=== PATIENT | male | born 1960 | race Caucasian/White ===

== ENCOUNTER 2024-11-17 06:12 | Day surgery (SDC) | payer OTHER, SELFPAY ==
[2024-11-17] VITALS (8 sets, daily range): BP systolic 90–132; BP diastolic 66–92; PULSE 57–76; RESP 16–18; TEMP 36.1–36.8; O2SAT 92–93; BMI 34.9
[2024-11-17] MEDS: Lactated Ringers 1,000 ML 15 ML IV (06:30)
--- NOTE | 2024-11-17 07:20 | PCM.PRE.AN2 ---
ASA Classification* ASA Classification ASA Classification: 2 Assessment & Plan Anesthesia* Anesthesia Assessment Anesthesia Assessment: Discussed sedation and/or anesthesia options, risks, benefits, and alternatives with patient/parents/legal guardian/POA. Questions invited. The patient/parents/legal guardian/POA seems to understand and agrees to proceed with anesthesia plan. Reviewed the physical assessment, medical history, allergy history and patient home medications list prior to surgery/procedure/anesthetic and documented any changes. Performed airway and anesthesia risk assessments. Anesthesia Type Anesthesia Type: MAC Anesthesia Focused Assessment* Temperature: 97.2 F Pulse Rate: 76 Blood Pressure: 124/84 Respiratory Rate: 16 Pulse Ox: 93 Airway Assessment Mouth opens: >3 cm Mallampati Score: II Focused Labs Anesthesia Preop lab: CBC CHEMISTRY COAG Pre-Assessment Diagnosis/Proposed Procedure Planned Operative Procedure(s): COLONOSCOPY Anesthesia History Anesthesia History - cloth trimmer hand: Anesthesia History - cloth trimmer hand Hx Hospitalization No 11/15/24 09:22 Any Problems With Anesthesia No 11/15/24 09:22 Cholinesterase deficiency No 11/15/24 09:22 You/Your Family Experience No 11/15/24 09:22 fever (hyperthermia) with Relationship Recent Exposure to Contagious No 11/17/24 06:54 Disease Does patient have nerve No 11/15/24 09:22 stimulator Patient instructed to have device shut off --Does patient have Pacemaker No 11/17/24 06:54 or ICD? When Was Last Pacemaker Check QUESTION #4 FULL TEXT: You/Your Family Experience fever (hyperthermia) with Anesthesia Last Oral Intake Last Oral intake: Last Oral Intake NPO since 03:20 11/17/24 06:54 Meds taken in AM with sips of No 11/17/24 06:54 water? Meds patient instructed to take am of surgery PONV PONV - cloth trimmer hand: PONV - cloth trimmer hand Female No 11/15/24 09:22 HX of Motion Sickness No 11/15/24 09:22 HX of N/V After Surgery Yes 11/15/24 09:22 Non-Smoker Yes 11/15/24 09:22 Duration of Surgery greater No 11/15/24 09:22 than 60 minutes Number of Risk Factors 2 11/15/24 09:22 PONV Score Moderate Risk 11/15/24 09:22 Height & Weight Height & Weight: Anesthesia: Height & Weight Height 5 ft 11 in 11/17/24 06:54 Weight: 113.6 kg 11/17/24 06:54 Body Mass Index (BMI) 34.9 11/17/24 06:54 Respiratory Assessment Respiratory Assessment - cloth trimmer hand: Respiratory Tract Infection Hx - cloth trimmer hand Hx Respiratory Tract Infection No 11/15/24 09:22 STOP Sleep Apnea STOP Sleep Apnea - cloth trimmer hand: STOP Sleep Apnea - cloth trimmer hand Hx Hypertension Yes 11/15/24 09:22 Hx Sleep Apnea No 11/15/24 09:22 CPAP BIPAP Do you snore loudly (louder No 11/15/24 09:22 than talking or can be heard Do you often feel tired/ No 11/15/24 09:22 fatigued/ sleepy during daytime? Has anyone observed you stop No 11/15/24 09:22 breathing during sleep? STOP Results Negative 11/15/24 09:22 QUESTION #5 FULL TEXT : Do you snore loudly (louder than talking or can be heard through closed doors)? Tobacco Use History Tobacco Use History - cloth trimmer hand: Tobacco Use History - cloth trimmer hand Tobacco Use Smoking Status Former smoker 11/15/24 09:22 Hx Tobacco Use No 11/15/24 09:22 Years Smoking Packs Smoked per Day Smoking Cessation Date was Yes - quit smoking within 15 11/15/24 09:22 within the last 15 years years Hx Smoking Cessation Date Hx Smoking Cessation Counseling Hematologic Medial History Hematologic Hx - cloth trimmer hand: Hematologic Medical Hx - driver messenger Hx of Blood Transfusion No 11/15/24 09:22 Hx of Transfusion in last 3 No 11/15/24 09:22 Months Date of Last Transfusion (if within last 3 months) Ever experience any problems No 11/15/24 09:22 with transfusion(s)? Specify any problems Hx of Preganancy in last 3 N/A 11/15/24 09:22 Months Nurse Filling Out Transfusion [facility] 11/15/24 09:22 & Questions: Date: 11/15/24 11/15/24 09:22 Time: :11/15/24 09:22 Patient unable to answer at this time (ie. confused, unrespo /Reproduction History /Reproductive History - cloth trimmer hand: /Reproductive Hx- cloth trimmer hand Hx Now Gestational Age (in weeks): EDC: Hx Hx Para Hx Section SAB Active Medications Active Medications: Current Medications Generic Name Dose Route Start Last Admin Trade Name Kerri PRN Reason Stop Dose Admin Lactated Ringer's 1,000 mls @ 15 mls/hr 11/17/24 06:30 11/17/24 06:30 IV 15 mls/hr .Q48H UMAIR Administration PFSH Medical History Cancer Marijuana use Arthritis High cholesterol Migraine headache Back pain History of diverticulitis Former smoker Hypercholesteremia HTN (hypertension) Hx of colonic polyps Home Medications ?Medication ?Instructions ?Recorded ?Last Taken ?Type aspirin 81 mg tablet,delayed 81 mg PO QDAY 09/10/24 11/13/24 History release (Adult Low Dose Aspirin) metoprolol succinate 100 mg 100 mg PO QDAY 09/10/24 11/16/24 History tablet,extended release 24 hr omega 1-hje-vpc-fish oil 1,200 mg 1 cap PO QDAY 09/10/24 11/12/24 History (144 mg-216 mg) capsule (Fish Oil) rosuvastatin 40 mg tablet 40 mg PO QDAY 09/10/24 11/16/24 History Allergy/AdvReac Type Severity Reaction Status Date / Time No Known Allergies Allergy Verified 11/17/24 06:53 Family History Mother Alzheimer disease Father COPD (chronic obstructive pulmonary disease) CAD (coronary artery disease) Surgical History History of orchiectomy History of hernia repair Hx of colonoscopy Social History household members: spouse current occupational status: employed Smoking Status: Former smoker alcohol intake: current alcohol intake frequency: holidays/special occasions only substance use type: does not use Review of Systems (Anesthesia) ROS Narrative System reviewed and no additional complaints, except as documented.
--- NOTE | 2024-11-17 07:30 | COLBX_PTH ---
PATIENT: JOANNE ALANIZ LOC: EN U#:[id number] AGE/SX: 64/M ROOM: RE11/17/[address]: Dr. Conor Scott DO : 1960 BED: DIS: 11/17/2024 SPEC #: [id number] RECD: 11/17/24 12:12 STATUS: IVET HARVINDER #: [id number] TITO: 11/17/24 07:[address]: Conor Scott DEPT: SURGICAL PATHOLOGY RECD BY: Mark Caballero ENTERED: 11/17/24 14:04 SP TYPE: COLON BX CELINE DR: Dr. Ollie Britt DO Tissues: A - COLON BIOPSY B - COLON BIOPSY C - Sigmoid colon biopsy D - Sigmoid colon biopsy Procedures: Surgery Specimen Level IV HEADER OPERATION: Colonoscopy, polypectomy PRE-OP DIAGNOSIS: Screening, polyp TISSUE SUBMITTED: Hepatic flexure polyps x3, Splenic flexure polyp, Sigmoid polyp #1, Sigmoid polyp #2 MICROSCOPIC DIAGNOSIS A. Colon, hepatic flexure, polyp, biopsy: * Tubular adenoma B. Colon, splenic flexure, polyp, biopsy: * Colonic mucosa with focally dilated crypts C. Sigmoid colon, polyp #1, biopsy: * Tubular adenoma D. Sigmoid colon, polyp #2, biopsy: * Hyperplastic polyp MICROSCOPIC DESCRIPTION Slides are reviewed. GROSS DESCRIPTION A. Received in formalin in a container labeled with the patient's name, date of , and hepatic flexure polyps are multiple shaw-pink fragments of mucosal tissue measuring 1.5 x 0.7 x 0.3 cm in aggregate. Submitted in toto in A1. B. Received in formalin in a container labeled with the patient's name, date of , and splenic flexure polyp is a 0.3 x 0.3 x 0.3 cm fragment of shaw-pink mucosal tissue. Submitted in toto in B1. C. Received in formalin in a container labeled with the patient's name, date of , and sigmoid polyp #1 is a 0.7 x 0.5 x 0.5 cm shaw-pink polyp with an attached 0.5 x 0.5 cm stalk (inked black). It is trisected and submitted entirely in C1. D. Received in formalin in a container labeled with the patient's name, date of , and sigmoid polyp #2 is a 0.8 x 0.5 x 0.3 cm polypoid fragment of shaw-pink mucosal tissue. The margin is inked black, and it is trisected. Received in the same container are 2 shaw-pink fragments of mucosal tissue each measuring 0.3 cm in greatest dimension. Submitted entirely in D1. [facility] 11-17-2024 CPT:08624z0
--- NOTE | 2024-11-17 07:50 | PCM.HP.STD ---
HPI - General General Date of Admission: 11/17/24 Date of Service: 11/17/24 Chief Complaint: Screening colon HPI Narrative JOANNE ALANIZ, is a 64 M who presents today for a screening colonoscopy. He had a colonoscopy in 2011 in which he had 3 polyps removed during that time. He is not have any abdominal pain. He is not have any chest pain or shortness of breath. He has a past medical history of hypertension and hypercholesterolemia. [facility] Medical History Cancer Marijuana use Arthritis High cholesterol Migraine headache Back pain History of diverticulitis Former smoker Hypercholesteremia HTN (hypertension) Hx of colonic polyps Home Medications ?Medication ?Instructions ?Recorded ?Last Taken ?Type aspirin 81 mg tablet,delayed 81 mg PO QDAY 09/10/24 11/13/24 History release (Adult Low Dose Aspirin) metoprolol succinate 100 mg 100 mg PO QDAY 09/10/24 11/16/24 History tablet,extended release 24 hr omega 5-olj-ywv-fish oil 1,200 mg 1 cap PO QDAY 09/10/24 11/12/24 History (144 mg-216 mg) capsule (Fish Oil) rosuvastatin 40 mg tablet 40 mg PO QDAY 09/10/24 11/16/24 History Allergy/AdvReac Type Severity Reaction Status Date / Time No Known Allergies Allergy Verified 11/17/24 06:53 Family History Mother Alzheimer disease Father COPD (chronic obstructive pulmonary disease) CAD (coronary artery disease) Surgical History History of orchiectomy History of hernia repair Hx of colonoscopy Social History household members: spouse current occupational status: employed Smoking Status: Former smoker alcohol intake: current alcohol intake frequency: holidays/special occasions only substance use type: does not use ROS Constitutional Constitutional: Denies fatigue, fever(s), poor appetite, weight gain or weight loss Gastrointestinal Gastrointestinal: Denies belching, bloating, change in bowel habits, change in stool character, chewing difficulty, coffee ground emesis, constipation, cramping, diarrhea, dyspepsia, dysphagia, early satiety, excessive flatus, fecal incontinence, heartburn, hematemesis, hematochezia, hemorrhoids, loose stools, melena, nausea, odynophagia, rectal bleeding, tenesmus, vomiting or weight changes Vital Signs Vital Signs Vital Signs: 11/17/24 06:54 11/17/24 06:54 11/17/24 07:21 Temperature 97.2 F L 97.2 F L Temperature Source Temporal Pulse Rate 76 76 Respiratory Rate 16 16 Respiratory Pattern Normal Blood Pressure 124/84 H 124/84 H Blood Pressure Mean 97 Blood Pressure Source Monitor Blood Pressure Position Semi-Fowlers Blood Pressure Location Right Arm Pulse Ox 93 93 Oxygen Delivery Method Room Air Weight Weight: 250 lb 7.122 oz Body Mass Index (BMI) 34.9 Physical Exam Const alert, oriented x3, no apparent distress and healthy appearing General Appearance: cooperative GI normal to inspection, nondistended, normoactive bowel sounds, soft to palpation, non-tender and non-distended Percussion: normal to percussion Rectal Exam: deferred Assessment & Plan Assessment/Plan (1) Encounter for screening for malignant neoplasm of colon: PLAN: He was explained alternatives, risks, benefits include not withstanding bleeding, infection, sepsis, perforation, need for emergent surgery and . He will have an ASA of 3.
--- NOTE | 2024-11-17 08:40 | PCM.POST.ANE ---
Anesthesia: Postop Eval I Current Vital Signs Temperature: 97 F Pulse Rate: 64 Blood Pressure: 94/67 Respiratory Rate: 18 Pulse Ox: 93 Oxygen Delivery Method: Room Air Assessment Airway patent: Yes Spontaneous unlabored respirations: Yes Mental status: Asleep nausea: No Vomiting: No Anesthesia Complication: No Fluid Hydration Crystalloid volume administer (ml): 500 Total IV fluid infused: 500 Progress Note Anesthesia document: Postop Eval 1 completed: Yes
--- NOTE | 2024-11-17 08:41 | OP.COLON_ITS ---
Patient Name: Paco Giles Procedure Date: 11/17/2024 7:54 AM Date of : 1960 Age: 64 Procedure: Colonoscopy Indications: High risk colon cancer surveillance: Personal history of colonic polyps Providers: Conor Scott DO Referring MD: Ollie Britt Medicines: Monitored Anesthesia Care Patient Profile: This is a 64 year old male. Refer to note in patient chart for documentation of history and physical. Last Colonoscopy: more than 10 years ago. Complications: No immediate complications. Procedure: Pre-Anesthesia Assessment: - Prior to the procedure, a History and Physical was performed, and patient medications and allergies were reviewed. The patient is competent. The risks and benefits of the procedure and the sedation options and risks were discussed with the patient. All questions were answered and informed consent was obtained. Patient identification and proposed procedure were verified by the physician in the pre-procedure area. Mental Status Examination: alert and oriented. Airway Examination: normal oropharyngeal airway and neck mobility. Respiratory Examination: clear to auscultation. CV Examination: normal. Prophylactic Antibiotics: The patient does not require prophylactic antibiotics. Prior Anticoagulants: The patient has taken no anticoagulant or antiplatelet agents except for NSAID medication. ASA Grade Assessment: II - A patient with mild systemic disease. After reviewing the risks and benefits, the patient was deemed in satisfactory condition to undergo the procedure. The anesthesia plan was to use monitored anesthesia care (MAC). Immediately prior to administration of medications, the patient was re-assessed for adequacy to receive sedatives. The heart rate, respiratory rate, oxygen saturations, blood pressure, adequacy of pulmonary ventilation, and response to care were monitored throughout the procedure. The physical status of the patient was re-assessed after the procedure. After I obtained informed consent, the scope was passed under direct vision. Throughout the procedure, the patient's blood pressure, pulse, and oxygen saturations were monitored continuously. The colonoscope was introduced through the anus and advanced to the cecum, identified by appendiceal orifice and ileocecal valve. The colonoscopy was performed without difficulty. The patient tolerated the procedure well. The quality of the bowel preparation was adequate. The ileocecal valve, appendiceal orifice, and rectum were photographed. Scope In: 8:03:55 AM Scope Withdrawal Time 0 hours 20 minutes 1 second Scope Out: 8:31:01 AM Total Procedure Duration Time 0 hours 27 minutes 6 seconds Findings: The perianal and digital rectal examinations were normal. Two sessile polyps were found in the sigmoid colon. The polyps were 1 to 2 mm in size. These polyps were removed with a hot snare. Resection and retrieval were complete. Verification of patient identification for the specimen was done. Estimated blood loss was minimal. Three sessile polyps were found in the hepatic flexure. The polyps were 1 to 2 mm in size. These polyps were removed with a cold snare. Resection and retrieval were complete. Verification of patient identification for the specimen was done. Estimated blood loss was minimal. A 5 mm polyp was found in the splenic flexure. The polyp was sessile. The polyp was removed with a jumbo cold forceps. Resection and retrieval were complete. Verification of patient identification for the specimen was done. Estimated blood loss was minimal. Multiple small and large-mouthed diverticula were found in the entire colon. The exam was otherwise without abnormality on direct and retroflexion views. Impression: - Two 1 to 2 mm polyps in the sigmoid colon, removed with a hot snare. Resected and retrieved. - Three 1 to 2 mm polyps at the hepatic flexure, removed with a cold snare. Resected and retrieved. - One 5 mm polyp at the splenic flexure, removed with a jumbo cold forceps. Resected and retrieved. - Diverticulosis in the entire examined colon. - The examination was otherwise normal on direct and retroflexion views. Recommendation: - Discharge patient to home. - Resume previous diet. - Continue present medications. - Await pathology results. - Repeat colonoscopy in 3 years for surveillance. Procedure Code(s): --- Professional --- 34212, Colonoscopy, flexible; with removal of tumor(s), polyp(s), or other lesion(s) by snare technique 39576, 59, Colonoscopy, flexible; with biopsy, single or multiple CPT copyright 2021 [employer]. All rights reserved. The codes documented in this report are preliminary and upon pre coder review may be revised to meet current compliance requirements. Conor Scott DO 11/17/2024 8:40:51 AM This report has been signed electronically. Number of Addenda: 0 Note Initiated On: 11/17/2024 7:54 AM
--- NOTE | 2024-11-17 08:41 | OP.CCLET_ITS ---
11/17/2024 Olile Britt Re : Colonoscopy procedure for Paco Giles Dear Lorenza This procedure was performed on Sunday, November 17, 2024. My impressions and recommendations are as follows: Impressions : - Two 1 to 2 mm polyps in the sigmoid colon, removed with a hot snare. Resected and retrieved. - Three 1 to 2 mm polyps at the hepatic flexure, removed with a cold snare. Resected and retrieved. - One 5 mm polyp at the splenic flexure, removed with a jumbo cold forceps. Resected and retrieved. - Diverticulosis in the entire examined colon. - The examination was otherwise normal on direct and retroflexion views. Recommendations : - Discharge patient to home. - Resume previous diet. - Continue present medications. - Await pathology results. - Repeat colonoscopy in 3 years for surveillance. My findings are described in the full procedure note, which is enclosed. If I can be of further assistance, please feel free to contact me at . Sincerely, Conor Scott DO 11/17/2024 8:40:51 AM This report has been signed electronically.
--- NOTE | 2024-11-17 08:43 | PCM.POSTANE2 ---
Anesthesia Postop Eval I Sum Postop Eval Completion status Anesthesia document: Postop Eval 1 completed: Yes Anesthesia Postop Eval I Summary Anesthesia Postop Eval I Summary: Anesthesia Postop Eval I: Assessment Summary Airway patent Yes 11/17/24 08:41 [email or web address] Spontaneous unlabored Yes 11/17/24 08:41 [email or web address] respirations Mental status Asleep 11/17/24 08:41 [email or web address] nausea No 11/17/24 08:41 [email or web address] Vomiting No 11/17/24 08:41 [email or web address] Anesthesia Postop Eval I: Fluid Summary Crystalloid volume administer 500 11/17/24 08:41 [email or web address] (ml) Colloids volume administered ( ml) Blood Product volume administered (ml) Total IV fluid infused 500 11/17/24 08:41 [email or web address] Anesthesia Postop Eval I: Summary Notes Anesthesia Complication No 11/17/24 08:41 [email or web address] Anesthesia Complication Comment: Post-operative progress note Anesthesia: Postop Eval II Evaluation Mental status: Awake Pain Level: 0 nausea: No Vomiting: No
== END 2024-11-17 09:20 | disposition home or self-care (01) ==
LOC: EN 06:13 → AC 06:14
PROVIDERS: PCP Family Medicine; Referring Provider Family Medicine; Visit Provider Internal Medicine Gastroenterology
PROC: 0DJD8ZZ Inspection of Lower Intestinal Tract, Via Natural or Artificial Opening Endoscopic (ICD-10-PCS; CPT 45378; principal; 2024-11-17 07:25)
DX: Z12.11 Encounter for screening for malignant neoplasm of colon (principal); D12.3 Benign neoplasm of transverse colon; D12.5 Benign neoplasm of sigmoid colon; K63.5 Polyp of colon; K57.30 Diverticulosis of large intestine without perforation or abscess without bleeding; I10 Essential (primary) hypertension; E78.00 Pure hypercholesterolemia, unspecified; Z79.82 Long term (current) use of aspirin; Z79.899 Other long term (current) drug therapy; Z86.0100 Personal history of colon polyps, unspecified; Z87.891 Personal history of nicotine dependence
CPT/HCPCS: 45380; 45385; 88305; J2405

== ENCOUNTER → 2025-07-15 | Outpatient (CLI) | payer OTHER, SELFPAY ==
--- NOTE | 2025-07-15 14:16 | CT_ITS ---
PROCEDURE: LOW DOSE CT LUNG SCREENING 07/15/2025 REASON FOR EXAM: NICOTINE DEPENDENCE TECHNIQUE: Procedure Code: [id number] Modality: CT Procedure: LOW DOSE CT LUNG SCREENING Coronal and Sagittal reconstruction series were provided. One or more dose reduction techniques were used (e.g., Automated exposure control, adjustment of the mA and/or kV according to patient size, use of iterative reconstruction technique). REFERENCE LINK: [employer] Lung-RADS RADIATION DOSE SUMMARY: DLP: 106.82 mGycm COMPARISON: None available. FINDINGS: PULMONARY NODULES: (Only nodules >3mm are reported) Nodules described below are on series 2 unless otherwise specified. Pulmonary Nodules: Left upper lobe lobular partially calcified nodule measuring up to 29 mm. There is adjacent pleural thickening. Multiple right calcified granulomas predominantly in the right lower lobe. Hardware:None. Lymph Nodes:No lymphadenopathy. Heart and Vasculature:Heart is normal in size.The main pulmonary artery and thoracic aorta are normal in caliber Coronary Artery Calcifications: Present Lungs and Airways: Centrilobular emphysema. Right lower lobe reticulation. Mild dependent atelectasis. The central airways are patent. Pleura:No pneumothorax or pleural effusion. Upper Abdomen:Unremarkable. Bones:No aggressive osseous lesions. Degenerative changes in the thoracic spine CT/Low Dose CT Lung Screening IMPRESSION: Left upper lobe lobular partially calcified nodule measuring up to 29 mm. Coronary artery calcification (CAC) is present. Lung-RADS Category: 4B VERY SUSPICIOUS. RECOMMEND DIAGNOSTIC CHEST CT; PET/CT M AY BE CONSIDERED IF >=8MM SOLID NODULE OR SOLID COMPONENT; TISSUE SAMPLING; AND/OR REFERRAL FOR CLINICAL EVALUATION. IF AIRWAY NODULE THEN REFER FOR CLINICAL EVALUATION Other Significant Findings: Pulmonary emphysema. Reading Location: [id number]
--- OUTSIDE RECORDS SUMMARY | 2025-07-15 14:19 | XMS RPT_ITS | CCD ---
Author Organization [facility] Care Team Providers Care Lab Nurse Name Role Phone Ollie Britt Unavailable Unavailable UNKNOWN, PROVIDER Unavailable Unavailable Petrilla, Ollie Unavailable Unavailable Petrilla, Ollie Unavailable Unavailable UNKNOWN, PROVIDER Unavailable Unavailable Petrilla, Ollie Unavailable Unavailable Petrilla Ollie LEVY F Primary Care Provider Ollie Britt DO F Primary Care Provider [phone] Daya Cox Attending Unavailable FriendConor Consulting Unavailable Friend, Conor Attending Unavailable Tyrona, Ollie Primary Care Unavailable Tyrona, Ollie Referring Unavailable FriendConor Attending Unavailable Petrilla, Ollie Primary Care Unavailable Petrilla, Ollie Referring Unavailable PETRILLA, OLLIE Attending Unavailable PETRILLA, OLLIE Primary Care Unavailable PETRILLA, OLLIE Primary Care Unavailable PETRILLA, OLLIE Attending Unavailable PETRILLA, OLLIE Primary Care Unavailable Medications Current Medications Medication Drug Class(es) Dates Sig (Normalized) Sig (Original) amoxicillin 500 mg oral capsule (4 sources) Penicillin-class Antibacterial Start: 08-20-2024 amoxicillin (Amoxil) 500 MG capsule 2 bid till gone 40 capsule 08/20/2024 Active aspirin 81 mg delayed release oral tablet (20 sources) Platelet Aggregation Inhibitor, Nonsteroidal Anti-inflammatory Drug take 1 tablet by mouth once daily aspirin 81 MG EC tablet Take 81 mg by mouth daily. Active Fish Oils (20 sources) take 1 tablet by mouth once daily omega-3 (Fish Oil) 1200 MG capsule Take 1 tablet by mouth daily. Active take 1 tablet by mouth once nessa y omega-3 (Fish Oil) 1200 MG capsule Take 1 tablet by mouth daily. 0 Active rosuvastatin calcium 40 mg oral tablet (20 sources) HMG-CoA Reductase Inhibitor Start: 05-18-2024 End: 08-19-2024 rosuvastatin (Crestor) 40 MG tablet TAKE 1 TABLET EVERY EVENING AFTER A MEAL (DOSE INCREASE) 90 tablet 3 08/19/2024 Active Start: 03-31-2023 End: 05-18-2024 rosuvastatin (Crestor) 10 MG tablet TAKE 1 TABLET EVERY EVENING AFTER A MEAL (DOSE INCREASE) 90 tablet 3 05/06/2024 05/18/2024 Discontinued Completed/Discontinued Medications Medication Drug Class(es) Dates Sig (Normalized) Sig (Original) ezetimibe 10 mg oral tablet (10 sources) Dietary Cholesterol Absorption Inhibitor Start: 04-16-2023 End: 05-18-2024 take 1 tablet by mouth once daily ezetimibe (Zetia) 10 MG tablet Take 1 tablet (10 mg) by mouth daily. 90 tablet 3 05/06/2024 05/18/2024 Discontinued (Ineffective) 24 hr metoprolol succinate 100 mg extended release oral tablet (20 sources) beta-Adrenergic Aida Start: 05-18-2024 End: 08-19-2025 take 1 tablet by mouth once daily metoprolol succinate XL (Toprol-XL) 100 MG 24 hr tablet Take 1 tablet (100 mg) by mouth daily. Do not crush or chew. 90 tablet 1 12/01/2024 03/10/2025 Discontinued (Reorder) Start: 05-06-2024 End: 05-06-2025 take 1 tablet by mouth once daily metoprolol succinate XL (Toprol-XL) 50 MG 24 hr tablet Take 1 tablet (50 mg) by mouth daily. Do not crush or chew. 30 tablet 1 05/06/2024 05/18/2024 Discontinued Problems Active Problems Problem Classification Problem Date Documented Date Episodic/Chronic Aortic; peripheral; and visceral artery aneurysms (2 sources) Abdominal aortic aneurysm, without rupture; Translations: [Abdominal aortic aneurysm, without rupture] Onset: 01-12-2018 Chronic Disorders of lipid metabolism (20 sources) Hypercholesterolemia; Translations: [Pure hypercholesterolemia, unspecified] Onset: 10-28-2018 05-05-2022 Chronic Diverticulosis and diverticulitis (20 sources) Diverticulosis of large intestine without perforation or abscess without bleeding; Translations: [Diverticular disease of large intestine] Onset: 10-23-2016 05-05-2022 Chronic Essential hypertension (20 sources) Labile essential hypertension; Translations: [Essential (primary) hypertension] Onset: 04-19-2021 05-05-2022 Chronic Other acquired deformities (2 sources) Spondylolisthesis, lumbar region; Translations: [Spondylolisthesis, lumbar region] Onset: 01-12-2018 Episodic Other non-traumatic joint disorders (2 sources) Pain in left hip; Translations: [Pain in left hip] Onset: 12-23-2017 Episodic Other upper respiratory disease (2 sources) Lesion of nose; Translations: [Other specified disorders of nose and nasal sinuses] 04-25-2023 Episodic Screening and history of mental health and substance abuse codes (12 sources) Ex-smoker; Translations: [Personal history of nicotine dependence] 05-06-2024 Episodic Spondylosis; intervertebral disc disorders; other back problems (20 sources) Degeneration of lumbar intervertebral disc; Translations: [Other intervertebral disc degeneration, lumbar region] Onset: 04-03-2015 05-05-2022 Chronic Spondylosis; intervertebral disc disorders; other back problems (4 sources) Sacrococcygeal disorders, not elsewhere classified; Translations: [Low back pain] Onset: 12-23-2017 Episodic Unclassified (2 sources) Spinal stenosis, lumbar region without neurogenic claudication; Translations: [Spinal stenosis, lumbar region without neurogenic viktoriya] Onset: 01-12-2018 Unclassified (2 sources) Blood Pressure Check; Translations: [Blood Pressure Check] Onset: 06-03-2024 Unclassified (1 source) Other intervertebral disc degeneration, lumbar region with discogenic back pain only; Translations: [Other intervertebral disc degeneration, lumbar region with discogenic back pain only] Onset: 05-05-2022 Past or Other Problems Problem Classification Problem Date Documented Date Episodic/Chronic Other and unspecified benign neoplasm (20 sources) History of polyp of colon; Translations: [Personal history of colonic polyps] Onset: 10-23-2016 05-05-2022 Episodic Other circulatory disease (20 sources) Femoral bruit; Translations: [Other specified symptoms and signs involving the circulatory and respiratory systems] Onset: 10-23-2016 05-05-2022 Episodic Other diseases of kidney and ureters (20 sources) Cyst of kidney; Translations: [Cyst of kidney, acquired] Onset: 10-28-2018 05-05-2022 Episodic Other non-epithelial cancer of skin (20 sources) History of malignant basal cell neoplasm of skin; Translations: [Personal history of other malignant neoplasm of skin] Onset: 10-23-2016 05-05-2022 Episodic Other screening for suspected conditions (not mental disorders or infectious disease) (20 sources) Patient encounter status; Translations: [Encounter for screening for malignant neoplasm of prostate] Onset: 05-06-2024 04-25-2023 Episodic Other upper respiratory infections (3 sources) Viral upper respiratory tract infection; Translations: [Acute upper respiratory infection, unspecified] Onset: 08-19-2024 08-19-2024 Episodic Residual codes; unclassified (20 sources) FH: Alzheimer's disease; Translations: [Family history of epilepsy and other diseases of the nervous system] Onset: 10-23-2016 05-05-2022 Episodic Residual codes; unclassified (20 sources) Family history of malignant melanoma; Translations: [Family history of malignant neoplasm of other organs or systems] Onset: 12-09-2019 05-05-2022 Episodic Residual codes; unclassified (20 sources) Family history of coronary arteriosclerosis; Translations: [Family history of ischemic heart disease and other diseases of the circulatory system] Onset: 10-23-2016 05-05-2022 Episodic Unclassified (9 sources) Patient encounter status 08-19-2024 Unclassified (1 source) Other intervertebral disc degeneration, lumbar region with discogenic back pain only; Translations: [Other intervertebral disc degeneration, lumbar region with discogenic back pain only] Onset: 05-06-2024 Results Test Name Value Interpretation Reference Range [facility] 03-10-2025 36 Name of caller: Carlie leger Contact phone number: [phone] Relationship to Patient: spouse/SO Provider: Dr. Britt Practice: [facility] Chief Complaint/Reason for Call: Lilian requesting patients metoprolol succinate XL (Toprol-XL) 100 MG 24 hr tablet refill to be sent to [facility], [place] [address] Please advise. Best time of day caller can be reached: any Patient advised that office/PCP has 24-48 business hours to return their call: Yes [facility] 01-25-2025 36 Pt was left a detail ed message and to call the office if any questions , and if he needs any prescriptions to him until his apt. [facility] 01-24-2025 36 Name of caller: Fortino Contact phone number: [phone] Relationship to Patient: patient Provider: Dr. Britt [facility] Chief Complaint/Reason for Call: Patient stated he was advised to reschedule his 02/17/25 appointment since provider will be out. Patient is now rescheduled for 03/28/25. Patient stated he's not sure if office would like to see him sooner as he's on blood pressure medication. Please contact Fortino and advise. Best time of day caller can be reached: any Patient advised that office/PCP has 24-48 business hours to return their call: Yes [facility] 36on 12-01-2024 36 Pt is out of tabulate, mail order is delayed Medication name: metoprolol succinate XL (Toprol-XL) 100 MG 24 hr tablet Medication dosage: 100 mg (Miligrams Monthly quantity needed: 10 How many day supply requestin pills Medication route: oral (PO) Medication administration time(s): daily If taking medication PRN, reason for taking medication: N/A If this is a controlled substance do you receive this or any other controlled medication from any other doctor or facility: N/A Ordering provider: Dr. Britt Date of last office visit: 08.19.24 Date of next office visit: 02.17.25 Date of last refill: (see medication tab): 08.19.24 Updated/Validated preferred pharmacy: Yes Patient instructed to contact the pharmacy prior to picking up the medication: No [facility] Colonoscopy Reporton 025 Colonoscopy Report [facility] Medical Records Department [address] [place] [address] Colonoscopy Report MR#: [id number] Acct: [id number] Name: PACO GILES Rep #: [id number] : 1960 64 From: Conor Scott DO PCP: Dr. Ollie Britt DO Status:REG [facility] Patient Name: Paco Giles Procedure Date: 11/17/2024 7:54 AM Date of : 1960 Age: 64 Procedure: Colonoscopy Indications: High risk colon cancer surveillance: Personal history of colonic polyps Providers: Conor Scott DO Referring MD: Ollie Britt Medicines: Monitored Anesthesia Care Patient Profile: This is a 64 year old male. Refer to note in patient chart for documentation of history and physical. Last Colonoscopy: more than 10 years ago. Complications: No immediate complications. Procedure: Pre-Anesthesia Assessment: - Prior to the procedure, a History and Physical was performed, and patient medications and allergies were reviewed. The patient is competent. The risks and benefits of the procedure and the sedation options and risks were discussed with the patient. All questions were answered and informed consent was obtained. Patient identification and proposed procedure were verified by the physician in the pre-procedure area. Mental Status Examination: alert and oriented. Airway Examination: normal oropharyngeal airway and neck mobility. Respiratory Examination: clear to auscultation. CV Examination: normal. Prophylactic Antibiotics: The patient does not require prophylactic antibiotics. Prior Anticoagulants: The patient has taken no anticoagulant or antiplatelet agents except for NSAID medication. ASA Grade Assessment: II - A patient with mild systemic disease. After reviewing the risks and benefits, the patient was deemed in satisfactory condition to undergo the procedure. The anesthesia plan was to use monitored anesthesia care (MAC). Immediately prior to administration of medications, the patient was re-assessed for adequacy to receive sedatives. The heart rate, respiratory rate, oxygen saturations, blood pressure, adequacy of pulmonary ventilation, and response to care were monitored throughout the procedure. The physical status of the patient was re-assessed after the procedure. After I obtained informed consent, the scope was passed under direct vision. Throughout the procedure, the patient's blood pressure, pulse, and oxygen saturations were monitored continuously. The colonoscope was introduced through the anus and advanced to the cecum, identified by appendiceal orifice and ileocecal valve. The colonoscopy was performed without difficulty. The patient tolerated the procedure well. The quality of the bowel preparation was adequate. The ileocecal valve, appendiceal orifice, and rectum were photographed. Scope In: 8:03:55 AM Scope Withdrawal Time 0 hours 20 minutes 1 second Scope Out: 8:31:01 AM Total Procedure Duration Time 0 hours 27 minutes 6 seconds Findings: The perianal and digital rectal examinations were normal. Two sessile polyps were found in the sigmoid colon. The polyps were 1 to 2 mm in size. These polyps were removed with a hot snare. Resection and retrieval were complete. Verification of patient identification for the specimen was done. Estimated blood loss was minimal. Three sessile polyps were found in the hepatic flexure. The polyps were 1 to 2 mm in size. These polyps were removed with a cold snare. Resection and retrieval were complete. Verification of patient identification for the specimen was done. Estimated blood loss was minimal. A 5 mm polyp was found in the splenic flexure. The polyp was sessile. The polyp was removed with a jumbo cold forceps. Resection and retrieval were complete. Verification of patient identification for the specimen was done. Estimated blood loss was minimal. Multiple small and large-mouthed diverticula were found in the entire colon. The exam was otherwise without abnormality on direct and retroflexion views. Impression: - Two 1 to 2 mm polyps in the sigmoid colon, removed with a hot snare. Resected and retrieved. - Three 1 to 2 mm polyps at the hepatic flexure, removed with a cold snare. Resected and retrieved. - One 5 mm polyp at the splenic flexure, removed with a jumbo cold forceps. Resected and retrieved. - Diverticulosis in the entire examined colon. - The examination was otherwise normal on direct and retroflexion views. Recommendation: - Discharge patient to home. - Resume previous diet. - Continue present medications. - Await pathology results. - Repeat colonoscopy in 3 years for surveillance. Procedure Code(s): --- Professional --- 62831, Colonoscopy, flexible; with removal of tumor(s), polyp(s), or other lesion(s) by snare technique 23469, 59, Colonoscopy, flexible; with bio (more content not included)... Normal [facility] MR/POSTOP.[facility] 11-17-2024 MR/POSTOP.[facility] Medical Records Department [address] [place] [address] Anesthesia Postop Eval I 11/17/24 0840 MR#: [id number] Acct: [id number] Name: PACO GILES Rep #: [id number] : 1960 64 From: Dimas Castellanos PCP: Dr. Ollie Britt, DO Status:REG SDC Y Race: C Location: [place] [address] Anesthesia: Postop Eval I Current Vital Signs Temperature: 97 F Pulse Rate: 64 Blood Pressure: 94/67 Respiratory Rate: 18 Pulse Ox: 93 Oxygen Delivery Method: Room Air Assessment Airway patent: Yes Spontaneous unlabored respirations: Yes Mental status: Asleep nausea: No Vomiting: No Anesthesia Complication: No Fluid Hydration Crystalloid volume administer (ml): 500 Total IV fluid infused: 500 Progress Note Anesthesia document: Postop Eval 1 completed: Yes 11/17/24840 Date Dimas Petitjohnnie Signature: Date CC: Signed Normal [facility] MR/[id number] 11-17-2024 [facility] Medical Records Department [address] [place] [address] Anesthesia Postop Eval II 11/17/2443 MR#: [id number] Acct: [id number] Name: PACO GILES Rep #: [id number] : 1960 64 From: Dandre Parada MD PCP: Dr. Ollie Britt, DO Status:REG [facility] Y Race: C Location: [place] [address] Anesthesia Postop Eval I Sum Postop Eval Completion status Anesthesia document: Postop Eval 1 completed: Yes Anesthesia Postop Eval I Summary Anesthesia Postop Eval I Summary: Anesthesia Postop Eval I: Assessment Summary Airway patent Yes 11/17/24 08:41 [email or web address] Spontaneous unlabored Yes 11/17/24 08:41 [email or web address] respirations Mental status Asleep 11/17/24 08:41 [email or web address] nausea No 11/17/24 08:41 [email or web address] Vomiting No 11/17/24 08:41 [email or web address] Anesthesia Postop Eval I: Fluid Summary Crystalloid volume administer 500 11/17/24 08:41 [email or web address] (ml) Colloids volume administered ( ml) Blood Product volume administered (ml) Total IV fluid infused 500 11/17/24 08:41 [email or web address] Anesthesia Postop Eval I: Summary Notes Anesthesia Complication No 11/17/24 08:41 [email or web address] Anesthesia Complication Comment: Post-operative progress note Anesthesia: Postop Eval II Evaluation Mental status: Awake Pain Level: 0 nausea: No Vomiting: No 11/17/2443 Date Dandre Carcamo Signature: Date CC: Signed Normal [facility] Surgery Specimen Level Ani 11-17-2024 Surgery Specimen Level IV Patient Age/Sex Location Account Attending Physician PACO GILES/M MAX [id number] Conor Scott, DO Specimen: [id number] Received: 11/17/24-1212 Status: IVET [place] Num: [id number] Spec Type: COLON BX Subm Dr: Conor Scott DO HEADER OPERATION: Colonoscopy, polypectomy PRE-OP DIAGNOSIS: Screening, polyp TISSUE SUBMITTED: Hepatic flexure polyps x3, Splenic flexure polyp, Sigmoid polyp #1, Sigmoid polyp #2 MICROSCOPIC DIAGNOSIS A. Colon, hepatic flexure, polyp, biopsy: * Tubular adenoma B. Colon, splenic flexure, polyp, biopsy: * Colonic mucosa with focally dilated crypts C. Sigmoid colon, polyp #1, biopsy: * Tubular adenoma D. Sigmoid colon, polyp #2, biopsy: * Hyperplastic polyp MICROSCOPIC DESCRIPTION Slides are reviewed. GROSS DESCRIPTION A. Received in formalin in a container labeled with the patient's name, date of , and hepatic flexure polyps are multiple shaw-pink fragments of mucosal tissue measuring 1.5 x 0.7 x 0.3 cm in aggregate. Submitted in toto in A1. B. Received in formalin in a container labeled with the patient's name, date of , and splenic flexure polyp is a 0.3 x 0.3 x 0.3 cm fragment of shaw-pink mucosal tissue. Submitted in toto in B1. C. Received in formalin in a container labeled with the patient's name, date of , and sigmoid polyp #1 is a 0.7 x 0.5 x 0.5 cm shaw-pink polyp with an attached 0.5 x 0.5 cm stalk (inked black). It is trisected and submitted entirely in C1. D. Received in formalin in a container labeled with the patient's name, date of , and sigmoid polyp #2 is a 0.8 x 0.5 x 0.3 cm polypoid fragment of shaw-pink mucosal tissue. The margin is inked black, and it is trisected. Received in the same container are 2 shaw-pink fragments of mucosal tissue each measuring 0.3 cm in greatest dimension. Submitted entirely in D1. SMB 11-17-2024 CPT:49861s9 Patient Age/Sex Location Account Attending Physician PACO GILES 64/M EN [id number] Conor Scott DO Signed (signature on file) Dr. Li Angel DO 11/18/24 1109 Normal [facility] Comment on above: Performed By: #### P BEENA #### [facility] Laboratory [facility] [address] [place], [place], [id number] 10-11-2024 29 Addended by: REGGIE VELÁZQUEZ on: 10/11/2024 09:11 AM Modules accepted: Orders [facility] 10-11-2024 36 Orders cancelled [facility] 10-08-2024 36 We have been unable to reach your patient to schedule their testing. Test Name: CT lung screening low dose 1st Attempt: 10/05/24 LVM 2nd Attempt: 10/08/24 Sent Screenherot Message [facility] 09-09-2024 36 Name of caller: Carlie Alegria Contact phone number: [phone] Relationship to Patient: spouse/SO Provider: Dr Britt Practice: [facility] Chief Complaint/Reason for Call: Caller stated that patient needs referral for colonoscopy sent to [facility], or [facility]. Caller stated that previous referral was sent to [facility] and they are not able to go to [facility] for this. Thank you. Best time of day caller can be reached: Any Patient advised that office/PCP has 24-48 business hours to return their call: No [facility] 08-20-2024 36 Placed call to bandar shaffer. Two patient identifers confirmed. Was able to speak to patient. All concerns in message have been addressed. No questions at this time. Call ended [facility] 36 S: Patient 's spouse spoke with [facility] nurse regarding patient's symptoms of cough, headache and sinus symptoms B: Onset of symptoms/concern 4 days A: Patient was seen in the office yesterday for essential HTN, hypercholesterolemia, Spouse states patient didn't sleep all night due to the symptoms he has had for 4 days, unsure why patient didn't express these concerns to the doctor yesterday. Patient has a productive cough with green phlegm., sinus symptoms (headache), and headache pain. Afebrile, denies sore throat or ear pain. ZAHRA-08/19/2024 Allergies & pharmacy ([facility]) verified. R: Spouse is requesting something be ordered for the patient's symptoms. Spouse instructed to call back with new or worsening symptoms. Reason for Disposition Lots of coughing Protocols used: Sinus Pain or [id number] Normal [facility] Office Visiton 08-19-2024 Follow-up visit [id number] Sonu Giles 1960 M Date Provider Department Center 08/19/2024 [id number]-NWFZONPROLLIE BRITT [facility] Family History Problem Relation Age of Onset Alzheimer's disease Mother 68 Comments: late 72 COPD Father Comments: on O2, 08/12 age 84 Coronary artery disease Father 70 Comments: CABG , Hyperlipidemia Sister Melanoma Sister Diabetes Maternal Grandmother Dementia Maternal Grandmother Comments: in 60s Diabetes Maternal Grandfather Comments: in 60s Cerebral aneurysm Paternal Grandmother Comments: young No Known Problems Paternal Grandfather Comments: age 89 Family Status - Relation Status Age at Mother 72 Father Sister Alive Sister Alive Maternal Grandmother Maternal Grandfather Paternal Grandmother Paternal Grandfather Level of Service:54860 [place] OFFICE/OUTPATIENT ESTABLISHED LOW [facility] 20 MIN Reason for Visit and Comments: 3 Month Follow Up [[id number]] - Hypertension and Hyperlipidemia - changed medications. Gained 10 pounds from last visit URI [115] - Congestion - Cough - started [address] [facility] Progress Noteon 08-19-2024 Progress Note [facility] - [address] [facility] [address] Visit type: Established Patient Reason for Visit: 3 Month Follow Up (Hypertension and Hyperlipidemia - changed medications. Gained 10 pounds from last visit ) and URI (Congestion - Cough - started 4 days ago ) Assessment / Plan: fortino was seen today for 3 month follow up and uri. Diagnoses and all orders for this visit: Essential hypertension (Primary) Comments: Stable on metoprolol Hypercholesterolemia Comments: Uncontrolled, better low-fat meals delete excessive milk intake, exercise weight loss and continue Crestor Orders: - Lipid panel; Future - AST; Future - ALT; Future - TSH; Future - Lipid panel - AST - ALT - TSH Screening for lung cancer Comments: LDCT chest Colon cancer screening Comments: GI referral Viral URI Other orders - metoprolol succinate XL (Toprol-XL) 100 MG 24 hr tablet; Take 1 tablet (100 mg) by mouth daily. Do not crush or chew. - rosuvastatin (Crestor) 40 MG tablet; TAKE 1 TABLET EVERY EVENING AFTER A MEAL (DOSE INCREASE) Subjective: Patient ID: Paco Giles is a 64 y.o. male. HPI hypertension lipid management for ex-smoker for 6 years. Feels good on his metoprolol. Blood pressure readings good at home. He does admit to drinking up to 4 gallons of milk a day and his triglycerides and cholesterol are quite high last April. Has gained some weight since he quit smoking. Discouraged and that. Review of Systems Denies headache or chest pain or dyspnea. Does have a mild rhinorrhea that is slightly yellow. No fever or face pain. No chest pain or pleurisy. Denies claudication or edema. No wheezing or dyspnea. No abdominal pain or change in bowels. Is due for colonoscopy. No change in urine flow. Prostate cancer screening up-to-date. No Known Allergies Current Outpatient Medications on File Prior to Visit Medication Sig Dispense Refill aspirin 81 MG EC tablet Take 81 mg by mouth daily. omega-3 (Fish Oil) 1200 MG capsule Take 1 tablet by mouth daily. [DISCONTINUED] metoprolol succinate XL (Toprol-XL) 100 MG 24 hr tablet Take 1 tablet (100 mg) by mouth daily. Do not crush or chew. 90 tablet 1 [DISCONTINUED] rosuvastatin (Crestor) 40 MG tablet TAKE 1 TABLET EVERY EVENING AFTER A MEAL (DOSE INCREASE) 90 tablet 3 No current facility-administered medications on file prior to visit. Patient Active Problem List Diagnosis Family history of Alzheimer's disease Femoral bruit History of colon polyps Diverticular disease of large intestine Essential hypertension Renal cyst, left Family history of melanoma Family history of coronary artery disease History of basal cell carcinoma of skin DDD (degenerative disc disease), lumbosacral Hypercholesterolemia Social History Tobacco Use Smoking status: Former Current packs/day: 0.00 Average packs/day: 0.5 packs/day for 40.7 years (20.3 ttl pk-yrs) Types: Cigarettes Start date: 01/22/1978 Quit date: 09/22/2018 Years since quittin.9 Smokeless tobacco: Never Substance Use Topics Alcohol use: Yes Alcohol/week: 0.0 standard drinks of alcohol Past Surgical History: Procedure Laterality Date COLONOSCOPY 2014 Turowski- due 2024 COLONOSCOPY 2011 Turowski HERNIA REPAIR Left 2010 HERNIA REPAIR Left 1995 ORCHIECTOMY Right 1976 torsion SKIN CANCER EXCISION 2011 2011- Dr. Jackson- BCC of nose- 2016 also Family History Problem Relation Name Age of Onset Alzheimer's disease Mother 68 late 72 COPD Father on O2, 08/12 age 84 Coronary artery disease Father 70 CABG , Hyperlipidemia Sister Malini Melanoma Sister Malini Diabetes Maternal Grandmother Dementia Maternal Grandmother in 60s Diabetes Maternal Grandfather in 60s Cerebral aneurysm Paternal Grandmother young No Known Problems Paternal Grandfather age 89 Objective: BP 128/86 (BP Location: Right arm, Patient Position: Sitting, BP Cuff Size: Large adult) Pulse 90 Temp 36.7 ?C (98.1 ?F) (Temporal) Resp 16 Ht 5' 11 (1.803 m) Wt 250 lb 12.8 oz (114 kg) BMI 34.98 kg/m? Physical Exam pleasant cooperative. Recheck blood pressure stable. Clear PND. Normal eardrums and oropharynx. No neck masses JVD or thyroid lesions. Heart is regular without gallops or murmurs. Lungs are diminished but clear of rales wheezes or egophony. Abdomen obese nontender without pain hepatosplenomegaly masses or bruits. Femoral pulses good. No edema and pedal pulses are good Normal [facility] 29on 07-08-2024 29 Addended by: REGGIE VELÁZQUEZ on: 07/08/2024 05:37 PM Modules accepted: Orders Normal [facility] 36on 07-08-2024 36 Orders cancelled Normal [facility] 36on 07-07-2024 36 We have been unable to reach your patient to schedule their testing. Test Name: CT LUNG SCREENING LOW DOSE 2nd attempt//left vm//TE to office//12.18.24 KGK 1st attempt//mychart message//12.7.24KGK Normal [facility] Progress Noteon 06-03-2024 Progress Note BP stable, no rx changes Normal [facility] Progress Note [address] [place] [id number] @patname@ Patient arrived for nurse visit today. Two patient identifiers used to confirm correct patient yes Supervising provider for clinic visit Dr. Britt is taking Metoprolol 100mg for hypertension with excellent compliance and no side effects regular Shortness of breath no Medication compliance yes Medication Reconciliation yes BP Medication taken prior to visit no at what time 8:00pm B/P Reading taken manual Home Monitoring yes Patient advised if follow up is needed, outreach will occur in 48 hours BP:112/68 HR:65 Home Bps have been running in the 110s/60s [facility] 36on 05-06-2024 36 Orders for LDCT pend ed for doctor's signature Normal [facility] 36 ----- Message from Ollie Britt DO sent at 05/06/2024 12:16 PM EDT ----- This is the correct Fortino Giles who needs an LDCT of his chest. I believe he sent me a request for his son this morning [facility] Office Visiton 05-06-2024 Follow-up visit [id number] Sonu Giles 1960 M Date Provider Department Center 05/06/2024 [id number] MURGUIA [facility] Family History Problem Relation Age of Onset Alzheimer's disease Mother 68 Comments: late 72 COPD Father Comments: on O2, passed 08/12 age 84 Heart disease Father 70 Comments: CABG , Hyperlipidemia Sister Melanoma Sister Hyperlipidemia Sister Cerebral aneurysm Maternal Grandmother 60 Diabetes Maternal Grandfather No Known Problems Paternal Grandmother Comments: in 80s No Known Problems Paternal Grandfather Family Status - Relation Status Age at Mother 72 Father Sister Alive Sister Alive Maternal Grandmother Maternal Grandfather Paternal Grandmother Paternal Grandfather Level of Service:09693 [place] PERIODIC PREVENTIVE MED EST PATIENT 40-64YRS Reason for Visit and Comments: Annual Exam [83] Flu Vaccine [189] - Patient has agreed to receive influenza vaccine in the office today. Normal [facility] PATINSon 05-06-2024 PATINS Blood pressure check with staff in [address] [facility] Progress Noteon 05-06-2024 Progress Note [facility] [place] [address] [facility] [id number] Visit type: Established Patient Reason for Visit: Annual Exam and Flu Vaccine (Patient has agreed to receive influenza vaccine in the office today. ) Assessment / Plan: fortino was seen today for annual exam and flu vaccine. Diagnoses and all orders for this visit: Annual physical exam (Primary) Degeneration of intervertebral disc of lumbar region with discogenic back pain Hypercholesteremia Comments: Stable, continue Crestor and Zetia Orders: - CBC auto differential; Future - Comprehensive metabolic panel; Future - Lipid panel; Future - CBC auto differential - Comprehensive metabolic panel - Lipid panel History of basal cell carcinoma of skin Prostate cancer screening - PSA Total (Screening); Future - PSA Total (Screening) Primary hypertension Comments: New onset, begin metoprolol, BP check 4 weeks, baby aspirin daily Screening for lung cancer Comments: Praise given on smoking cessation. LDCT chest Other orders - Flu vaccine (FLUZONE/FLULAVAL), trivalent, split virus (VFC product) - ezetimibe (Zetia) 10 MG tablet; Take 1 tablet (10 mg) by mouth daily. - rosuvastatin (Crestor) 10 MG tablet; TAKE 1 TABLET EVERY EVENING AFTER A MEAL (DOSE INCREASE) - metoprolol succinate XL (Toprol-XL) 50 MG 24 hr tablet; Take 1 tablet (50 mg) by mouth daily. Do not crush or chew. Subjective: Patient ID: Paco Giles is a 63 y.o. male. HPI ex-smoker for many years presents for annual physical. On statin therapy. Overall feeling well except but has become worried about risk for hypertension and cerebral aneurysms. Apparently had 2 close friends have cerebral events and 1 is not doing well. Overall feeling well except for some low back pain and weight gain. He is contemplating getting a less labor-intensive job to help his back issues. Review of Systems no recent earache sore throat or cough. No chest pain or palpitations. No dyspnea on exertion PND orthopnea claudication or edema. No change in ENT. Denies change in vision or headaches. No abdominal pain. Bowels are regular. No melena or blood. No constipation or diarrhea. No dysuria or hematuria. Needs PORSCHE and PSA. Colonoscopy up-to-date. Low back pain. No sciatica lately. Does take Tylenol with some decent relief. 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 Blood pressure has been intermittently elevated in the past No Known Allergies Current Outpatient Medications on File Prior to Visit Medication Sig Dispense Refill aspirin 81 MG EC tablet Take 81 mg by mouth daily. omega-3 (Fish Oil) 1200 MG capsule Take 1 tablet by mouth daily. [DISCONTINUED] ezetimibe (Zetia) 10 MG tablet Take 1 tablet (10 mg) by mouth daily. 90 tablet 3 [DISCONTINUED] rosuvastatin (Crestor) 10 MG tablet TAKE 1 TABLET EVERY EVENING AFTER A MEAL (DOSE INCREASE) 90 tablet 3 No current facility-administered medications on file prior to visit. Patient Active Problem List Diagnosis Family history of Alzheimer's disease Femoral bruit History of colon polyps Diverticular disease of large intestine Labile essential hypertension Renal cyst, left Family history of melanoma Family history of coronary artery disease in father History of basal cell carcinoma of skin Lumbar degenerative disc disease Hypercholesteremia Social History Tobacco Use Smoking status: Former Current packs/day: 0.00 Average packs/day: 0.5 packs/day for 40.7 years (20.3 ttl pk-yrs) Types: Cigarettes Start date: 01/22/1978 Quit date: 09/22/2018 Years since quittin.6 Smokeless tobacco: Never Substance Use Topics Alcohol use: Yes Alcohol/week: 0.0 standard drinks of alcohol Past Surgical History: Procedure Laterality Date COLONOSCOPY 2014 Turowski- due 2024 COLONOSCOPY 2011 Turowski HERNIA REPAIR Left 2010 HERNIA REPAIR Left 1995 ORCHIECTOMY Right 1976 torsion SKIN CANCER EXCISION 2011 2011- Dr. Jackson- BCC of nose- 2015 also Family History Problem Relation Name Age of Onset Alzheimer's disease Mother 68 late 72 COPD Father on O2, passed 08/12 age 84 Heart disease Father 70 CABG , Hyperlipidemia Sister Malini Melanoma Sister Malini Hyperlipidemia Sister Nichole Cerebral aneurysm Maternal Grandmother 60 Diabetes Maternal Grandfather No Known Problems Paternal Grandmother in 80s No Known Problems Paternal Grandfather Objective: BP (!) 170/90 (BP Location: Left arm, Patient Position: Sitting, BP Cuff Size: Large adult) Pulse 104 Temp 37.3 ?C (99.2 ?F) (Temporal) Ht 5' 11 (1.803 m) Wt 240 lb (109 kg) SpO2 91% BMI 33.47 kg/m? Physical Exam Constitutional: General: He is not in acute distress. Appearance: Normal appearance. He is obese. He is not ill-appearing. HENT: Right Ear: Tympanic membrane normal. Left Ear: Tympanic membrane normal. Nose: Nose normal. N (more content not included)... Normal [facility] MRI Spine Lumbar w/o Contras ton 01-12-2018 MRI Spine Lumbar w/o Contrast Patient Name: PACO GILES MRI Exam Date/Time 01/12/2018 09:07:17 EDT Exam MRI Spine Lumbar w/o Contrast Ordering Physician DO BRITT EUGENE F. Accession Number [id number] CPT4 Codes 08165 () Reason For Exam pain Report Examination: MRI lumbar spine Indication: pain Technique: Multiplanar multi-sequence MRI images of the lumbar spine were obtained. Findings: Grade 1 anterior listhesis of L5 on S1 is noted with bilateral pars interarticularis defects. Otherwise, the lumbar vertebral bodies are in gross anatomic alignment. There is no acute fracture. There are no focal marrow replacing lesions. The conus terminates at approximately the T12/L1 level. The paraspinal musculature is grossly unremarkable. Multiple diverticula of the sigmoid colon are noted. Large left renal midpole cyst measures approximately 4.5 cm. At the L1/L2 level, the central canal and foramina are patent. At the L2/L3 level, minimal circumferential disc bulging is present. There are mild degenerative facet changes. There is mild narrowing of central canal. The bilateral foramina are patent. At the L3/L4 level, minimal retrolisthesis is noted. There is mild circumferential disc bulging. Facet and ligamentum flavum hypertrophy is noted. Moderate to severe right and mild left-sided foraminal narrowing is noted. At the L4/L5 level, facet hypertrophy is present, greater on the right. The central canal is patent. Moderate right and no significant left-sided foraminal narrowing is noted. At the L5/S1 level, grade 1 anterior listhesis is noted. There are bilateral pars interarticularis defects with degenerative facet changes. The central canal is patent. Moderate to severe left and fogb-ex-ffrhyggm right-sided foraminal narrowing is noted. Impression: Grade 1 anterior listhesis of L4 on L5 with bilateral pars interarticularis defects. Foraminal stenosis is worst on the left at this level. Minimal retrolisthesis of L3 on L4. There is significant right-sided foraminal narrowing at this level. Minimally aneurysmal infrarenal abdominal aorta (2.4 cm). Colonic diverticulosis of the sigmoid colon. Report Dictated on Final Dictating Physician: AGNES ANDRADE Signed Date and Time: 01/12/2018 9:43 am Signed by: AGNES ANDRADE Transcribed Date and Time: 01/12/2018 9:44 Normal [facility] CR Sacrum/Coccyx 2+ Viewson 12-23-2017 CR Sacrum/Coccyx 2+ Views Patient Name: PACO GILES Diagnostic Radiology Exam Date/Time 12/23/2017 09:00:42 EDT Exam CR Sacrum/Coccyx 2+ Views Ordering Physician DO BRITT EUGENE F. Accession Number [id number] CPT4 Codes 18926 () Reason For Exam COCCYDYNIA Report Indication: Coccydynia. AP and lateral views of the sacrum and coccyx. No fracture or bony destruction. Sacrum is partially obscured on the the frontal view due to bowel contents. Sacroiliac joints appear symmetrical and normal in width. Sacral ala appear intact. IMPRESSION: No acute bony abnormality. Report Dictated on Final Dictating Physician: MD PARIS LAURA Signed Date and Time: 12/23/2017 10:08 am Signed by: MD PARIS LAURA Transcribed Date and Time: 12/23/2017 10:10 Normal [facility] CR Spine Lumbosacral 4+ View son 12-23-2017 CR Spine Lumbosacral 4+ Views Patient Name: PACO GILES Diagnostic Radiology Exam Date/Time 12/23/2017 09:00:42 EDT Exam CR Spine Lumbosacral 4+ Views Ordering Physician DO BRITT EUGENE F. Accession Number [id number] CPT4 Codes 52575 () Reason For Exam low back pain and left hip pain Report CLINICAL INFORMATION: Low back pain. Frontal, bilateral oblique , L5/S1 spot view and lateral views of the lumbar spine were obtained. There are 5 lumbar type vertebrae. Bone density appears decreased. The vertebral heights are within normal limits. Lateral view shows 0.6 cm of anterolisthesis of L5 in reference to S1. Left unilateral spondylolysis defect of L5. Bxze-tn-vchkegwp disc space narrowing at L2-L3, L3-L4 and L5-S1. Facet hypertrophy at L5-S1. No acute fracture is noted. IMPRESSION: Anterolisthesis of L5 in reference to S1. Left unilateral Spondylolysis defect of L5. Mild to moderate multilevel degenerative disc and endplate changes. Report Dictated on Final Dictating Physician: MD PARIS LAURA Signed Date and Time: 12/23/2017 10:12 am Signed by: MD PARIS LAURA Transcribed Date and Time: 12/23/2017 10:13 [facility] Vital Signs Date Time Vital Sign Value Performing Clinician Tadeo nance 08-19-2024 07:03-0500 Body height 180.3 cm Ollie Britt [employer] Work Phone: [facility] 08-19-2024 07:03-0500 Body mass index (BMI) [Ratio] 34.98 kg/m2 Ollie Britt [employer] Work Phone: [facility] 08-19-2024 07:03-0500 Body temperature 98.1 [degF] Ollie Britt [employer] Work Phone: [facility] 08-19-2024 07:03-0500 Body weight 113.76 kg Ollie Britt [employer] Work Phone: [facility] 08-19-2024 07:03-0500 Diastolic blood pressure 86 mm[Hg] Ollie Britt [employer] Work Phone: [facility] 08-19-2024 07:03-0500 Heart rate 90 /min Ollie Britt [employer] Work Phone: [facility] 08-19-2024 07:03-0500 Respiratory rate 16 /min Ollie Britt [employer] Work Phone: [facility] 08-19-2024 07:03-0500 Systolic blood pressure 128 mm[Hg] Ollie Britt [employer] Work Phone: [facility] 06-03-2024 09:11-0500 Diastolic blood pressure 76 mm[Hg] [facility] Schedule [facility] [employer] 06-03-2024 09:11-0500 Systolic blood pressure 112 mm[Hg] [employer] [facility] [employer] Schedule [facility] [employer] 05-06-2024 07:04-0400 Body height 180.3 cm Ollie Britt DO Work Phone: [facility] [employer] 05-06-2024 07:04-0400 Body mass index (BMI) [Ratio] 33.47 kg/m2 Ollie Britt DO Work Phone: [facility] [employer] 05-06-2024 07:04-0400 Body temperature 99.19 [degF] Ollie Britt DO Work Phone: [facility] [employer] 05-06-2024 07:04-0400 Body weight 108.86 kg Ollie Britt DO Work Phone: [facility] [employer] 05-06-2024 07:04-0400 Diastolic blood pressure 90 mm[Hg] Ollie Britt DO Work Phone: [facility] [employer] 05-06-2024 07:04-0400 Heart rate 104 /min Ollie Britt DO Work Phone: [facility] [employer] 05-06-2024 07:04-0400 SaO2% (BldA) [Mass fraction] 91 % Ollie Britt DO Work Phone: [facility] [employer] 05-06-2024 07:04-0400 Systolic blood pressure 170 mm[Hg] Ollie Britt DO Work Phone: [facility] [employer] 04-25-2023 07:26-0400 Diastolic blood pressure 88 mm[Hg] Ollie Velarobishweta DO Work Phone: [facility] [employer] 04-25-2023 07:26-0400 Heart rate 68 /min Ollie Velarobishweta DO Work Phone: [facility] [employer] 04-25-2023 07:26-0400 Systolic blood pressure 148 mm[Hg] Ollie Velarobishweta DO Work Phone: [facility] [employer] 04-25-2023 06:56-0400 Body height 180.3 cm Ollie Britt DO Work Phone: [facility] 04-25-2023 06:56-0400 Body mass index (BMI) [Ratio] 31.24 kg/m2 Ollie Britt DO Work Phone: [facility] 04-25-2023 06:56-0400 Body temperature 98.91 [degF] Ollie Britt DO Work Phone: [facility] 04-25-2023 06:56-0400 Body weight 101.61 kg Ollie Britt DO Work Phone: [facility] 04-25-2023 06:56-0400 SaO2% (BldA) [Mass fraction] 93 % Ollie Britt DO Before the Call Phone: [facility] Encounters Encounter Date Encounter Type Care Provider Facility Start: 03-10-2025 End: 03-22-2025 Telephone encounter Ollie Britt DO Work Phone: [facility] Comment on above: Medication Question Start: 12-01-2024 End: 12-01-2024 Refill Ollie Britt DO Before the Call Phone: [facility] [employer] [facility] [place] Start: 11-17-2024 ambulatory [facility] Facility :[facility] Start: 11-17-2024 End: 11-17-2024 ambulatory [facility] Facility:[facility] Start: 09-10-2024 ambulatory [facility] Facility:[facility] Start: 09-09-2024 End: 10-07-2024 Telephone encounter Ollie Britt DO Work Phone: [facility] Comment on above: Colonoscopy Start: 08-20-2024 End: 08-20-2024 [facility] Start: 08-20-2024 End: 08-20-2024 Patient encounter procedure Nelly Ramirez RN [facility] Clinical Communication Start: 08-19-2024 End: 08-19-2024 Telephone encounter Ollie Britt DO Work Phone: [facility] [place] Comment on above: Referral (Dr Gardiner / LDCT) Start: 08-19-2024 End: 08-19-2024 Office outpatient visit 15 minutes Ollie Britt DO Work Phone: [facility] [place] Comment on above: Essential hypertensi on (Primary Dx); Hypercholesterolemia; Screening for lung cancer; Colon cancer screening; Viral URI Start: 08-19-2024 End: 08-19-2024 ambulatory [facility] Start: 06-03-2024 End: 06-03-2024 Clinical Support [facility] [place] Comment on above: Primary hypertension Start: 05-18-2024 End: 05-18-2024 Orders Only Ollie Britt Work Phone: [facility] [place] Start: 05-06-2024 End: 05-09-2024 Telephone encounter Ollie Machado Tyrons[place]eta Work Phone: [facility] [place] Comment on above: Orders (LDCT) Start: 05-06-2024 End: 05-06-2024 Patient encounter procedure Ollie Britt Work Phone: [facility] Start: 05-06-2024 End: 05-06-2024 Periodic preventive med est patient 40-64yrs Ollie Machado Lorenza LEVY Work Phone: [facility] [place] Comment on above: Annual physical exam (Primary Dx); Degeneration of intervertebral disc of lumbar region with discogenic back pain; Hypercholesteremia; History of basal cell carcinoma of skin; Prostate cancer screening; Primary hypertension; Screening for lung cancer Start: 05-06-2024 End: 05-06-2024 ambulatory [facility] Start: 04-28-2023 Telephone encounter Ollie Jeannette Shaquille turner DO Work Phone: [facility] Comment on above: Results; Release of Information Start: 04-25-2023 Telephone encounter Ollie turner DO Work Phone: [facility] Comment on above: Referral (Arsalan cnoroy) Start: 04-25-2023 End: 04-25-2023 Patient encounter procedure Ollie Britt DO Work Phone: [facility] Start: 04-25-2023 End: 04-25-2023 Periodic preventive med est patient 40-64yrs Ollie Britt DO Work Phone: [facility] Comment on above: Annual physical exam (Primary Dx); Labile essential hypertension; Hypercholesteremia; Family history of Alzheimer's disease; Family history of melanoma; History of basal cell carcinoma of skin; Lesion of nose; Prostate cancer screening Start: 03-31-2023 Refill Ollie calderón DO Work Phone: [facility] Start: 01-12-2018 Ambulatory [facility] Start: 12-23-2017 Ambulatory [facility] Procedures Date Procedure Procedure Detail Performing Clinician Start: 11-17-2024 Colonoscopy Ollie fulton DO Work Phone: Start: 08-19-2024 Adult depression scr eening assessment Ollie Britt DO Work Phone: Start: 08-19-2024 Lipid 1996 panel - S brown or Plasma Ollie Britt DO Work Phone: Start: 05-06-2024 Adult depression scr eening assessment Ollie Britt DO Work Phone: Start: 05-06-2024 Lipid 1996 panel - S brown or Plasma Ollie Britt DO Work Phone: Start: 04-25-2023 Lipid 1996 panel - S brown or Plasma Ollie Britt DO Work Phone: Start: 04-19-2022 Lipid 1996 panel - S brown or Plasma Ollie Britt DO Work Phone: Start: 11-22-2014 Colonoscopy Ollie fulton DO Work Phone: Plan of Treatment Date Care Activity Detail Author Start: 01-11-2037 RSV Immunization for Adults (1 - 1-dose 75+ series) RSV Immunization for Adults (1 - 1-dose 75+ series) [facility] Start: 08-19-2029 Lipid panel Lipid Panel [facility] Start: 05-06-2029 Lipid panel Lipid Panel [facility] Start: 04-25-2028 Lipid panel Lipid Panel [facility] Start: 11-18-2027 Screening for malignant neoplasm of colon [facility] Start: 04-19-2027 Lipid panel Lipid Panel [facility] Start: 08-19-2025 COVID-19 Vaccine ( season) COVID-19 Vaccine () [facility] Comment on above: Postponed from 03/21/2024 (Patient Refus ed) Start: 08-19-2025 Depression Screening Depression Screening [facility] Start: 05-06-2025 Depression Screening Depression Screening [facility] Start: 03-21-2025 COVID-19 Vaccine ( season) COVID-19 Vaccine () [facility] Start: 03-21-2025 Influenza vaccination Influenza Vaccine (#1) [facility] Start: 02-17-2025 End: 02-17-2025 Patient encounter procedure 02/17/2025 7:00 AM EDT Office Visit [facility] [address] [facility] [address] [place] [address] Ollie Britt DO [address] [place] [address] [facility] Start: 11-22-2024 Screening for malignant neoplasm of colon [facility] Start: 08-19-2024 End: 08-19-2025 Alanine aminotransferase [Enzymatic activity/volume] in Serum or Plasma ALT Lab Routine Hypercholesterolemia Expected: 08/19/2024 (Approximate), Expires: 08/19/2025 [facility] Comment on above: Expected: 08/19/2024 (Approximate), Expi res: 08/19/2025 Start: 08-19-2024 End: 08-19-2025 Aspartate aminotransferase [Enzymatic activity/volume] in Serum or Plasma AST Lab Routine Hypercholesterolemia Expected: 08/19/2024 (Approximate), Expires: 08/19/2025 [facility] Comment on above: Expected: 08/19/2024 (Approximate), Expi res: 08/19/2025 Start: 08-19-2024 End: 08-19-2025 CT Chest for screening WO contrast CT lung screening low dose Imaging Routine Former smoker Screening for lung cancer Expected: 08/19/2024, Expires: 08/19/2025 [facility] [employer] Work Phone: Comment on above: Expected: 08/19/2024, Expires: Start: 08-19-2024 End: 08-19-2025 Lipid 1996 panel - Serum or Plasma Lipid panel Lab Routine Hypercholesterolemia Expected: 08/19/2024 (Approximate), Expires: 08/19/2025 [facility] [employer] Work Phone: Comment on above: Expected: 08/19/2024 (Approximate), Expi res: 08/19/2025 Start: 08-19-2024 End: 08-19-2025 Thyrotropin [Units/volume] in Serum or Plasma TSH Lab Routine Hypercholesterolemia Expected: 08/19/2024 (Approximate), Expires: 08/19/2025 [facility] Comment on above: Expected: 08/19/2024 (Approximate), Expi res: 08/19/2025 Start: 08-19-2024 End: 08-19-2024 Patient encounter procedure 08/19/2024 7:00 AM EST Office Visit [facility] [address] [place] [address] Ollie Britt DO [address] [place] [address] [facility] Start: 06-03-2024 End: 06-03-2024 Clinical Support 06/03/2024 9:00 AM EST Clinical Support [facility] [address] [place] [address] [facility] Start: 05-09-2024 End: 05-06-2025 CT Chest for screening WO contrast CT lung screening low dose Imaging Routine Former smoker Expected: 05/09/2024 (Approximate), Expires: 05/06/2025 [facility] Work Phone: Comment on above: Expected: 05/09/2024 (Approximate), Expi res: 05/06/2025 Start: 05-06-2024 End: 05-06-2025 CBC W Auto Differential panel - Blood CBC auto differential Lab Routine Hypercholesteremia Expected: 05/06/2024 (Approximate), Expires: 05/06/2025 [facility] Work Phone: Comment on above: Expected: 05/06/2024 (Approximate), Expi res: 05/06/2025 Start: 05-06-2024 End: 05-06-2025 Comprehensive metabolic 1998 panel - Serum or Plasma Comprehensive metabolic panel Lab Routine Hypercholesteremia Expected: 05/06/2024 (Approximate), Expires: 05/06/2025 [facility] Comment on above: Expected: 05/06/2024 (Approximate), Expi res: 05/06/2025 Start: 05-06-2024 End: 05-06-2025 Lipid 1996 panel - Serum or Plasma Lipid panel Lab Routine Hypercholesteremia Expected: 05/06/2024 (Approximate), Expires: 05/06/2025 [facility] Comment on above: Expected: 05/06/2024 (Approximate), Expi res: 05/06/2025 Start: 05-06-2024 End: 05-06-2025 PSA Total (Screening) PSA Total (Screening) Lab Routine Prostate cancer screening Expected: 05/06/2024 (Approximate), Expires: 05/06/2025 [facility] [employer] Comment on above: Expected: 05/06/2024 (Approximate), Expi res: 05/06/2025 Start: 04-26-2024 End: 04-26-2024 Patient encounter procedure [facility] Start: 03-21-2024 COVID-19 Vaccine () COVID-19 Vaccine () [facility] Start: 03-21-2024 COVID-19 Vaccine () COVID-19 Vaccine () [facility] Start: 04-25-2023 End: 04-25-2024 CBC W Auto Differential panel - Blood CBC auto differential Lab Routine Labile essential hypertension Annual physical exam Expected: 04/25/2023 (Approximate), Expires: 04/25/2024 [facility] Work Phone: Comment on above: Expected: 04/25/2023 (Approximate), Expi res: 04/25/2024 Start: 04-25-2023 End: 04-25-2024 Comprehensive metabolic 1998 panel - Serum or Plasma Comprehensive metabolic panel Lab Routine Labile essential hypertension Annual physical exam Expected: 04/25/2023 (Approximate), Expires: 04/25/2024 [facility] [employer] Comment on above: Expected: 04/25/2023 (Approximate), Expi res: 04/25/2024 Start: 04-25-2023 End: 04-25-2024 Lipid 1996 panel - Serum or Plasma Lipid panel Lab Routine Hypercholesteremia Annual physical exam Expected: 04/25/2023 (Approximate), Expires: 04/25/2024 [facility] [employer] Comment on above: Expected: 04/25/2023 (Approximate), Expi res: 04/25/2024 Start: 04-25-2023 End: 04-25-2024 PSA Total (Screening) PSA Total (Screening) Lab Routine Prostate cancer screening Annual physical exam Expected: 04/25/2023 (Approximate), Expires: 04/25/2024 [facility] [employer] Comment on above: Expected: 04/25/2023 (Approximate), Expi res: 04/25/2024 Start: 04-25-2023 End: 04-25-2024 Thyrotropin [Units/volume] in Serum or Plasma TSH Lab Routine Hypercholesteremia Expected: 04/25/2023 (Approximate), Expires: 04/25/2024 [facility] [employer] Comment on above: Expected: 04/25/2023 (Approximate), Expi res: 04/25/2024 Start: 04-25-2023 End: 04-25-2023 Patient encounter procedure 04/25/2023 7:00 AM EDT Office Visit [facility] [address] [place] [address] Ollie Britt, [address] [place] [address] [id number] [employer] [facility] [employer] [facility] Start: 03-21-2023 Influenza vaccination Influenza Vaccine (#1) [facility] Start: 09-17-2021 COVID-19 Vaccine (4 - Booster for Pfizer series) COVID-19 Vaccine (4 - Booster for Pfizer series) [facility] Start: 2021 RSV Immunization aged 60 or older (1 - 1-dose 60+ series) RSV Immunization aged 60 or older (1 - 1-dose 60+ series) [facility] Start: 2011 Pneumococcal Vaccine: 50+ Years (1 of 1 - PCV) Pneumococcal Vaccine: 50+ Years (1 of 1 - PCV) [facility] Start: 2011 Screening for malignant neoplasm of lung Lung Cancer Screening [facility] Start: 2011 Zoster Vaccines (1 of 2) Zoster Vaccines (1 of 2) [facility] Start: 1980 DTaP/Tdap/Td Vaccines (1 - Tdap) DTaP/Tdap/Td Vaccines (1 - Tdap) [facility] Start: 1979 Diabetes mellitus screening Diabetes Screening [facility] Start: 1979 Hepatitis C screening Hepatitis C Screening [facility] Start: 1973 Depression Screening Depression Screening [facility] Start: 1962 MMR Vaccines (1 of 1 - Standard series) MMR Vaccines (1 of 1 - Standard series) [facility] Start: 1961 HIV screening HIV Screening [facility] Start: 1961 Screening for malignant neoplasm of colon [facility] Immunizations Immunization Date Immunization Notes Care Provider Fa cility 05-06-2024 influenza, seasonal, injectable, preservative free Ollie Britt DO Work Phone: [facility] 05-06-2024 influenza virus vacc ine, unspecified formulation Ollie Britt DO Work Phone: [facility] 04-25-2023 influenza, injectabl e, quadrivalent, preservative free Ollie Britt DO Work Phone: [facility] 04-25-2023 influenza virus vacc ine, unspecified formulation Ollie Britt DO Work Phone: [facility] 04-19-2022 influenza, injectabl e, quadrivalent, preservative free Ollie Britt DO Work Phone: [facility] 04-19-2022 influenza virus vacc ine, unspecified formulation Ollie Britt DO Work Phone: [facility] 07-23-2021 Pfizer SARS-CoV-2 Vaccination Ollie Britt DO Work Phone: [facility] 04-19-2021 influenza, injectabl e, quadrivalent, preservative free Ollie Britt DO Work Phone: [facility] 04-14-2015 influenza virus vacc ine, unspecified formulation Ollie Britt DO Work Phone: [facility] 05-06-2013 influenza virus vacc ine, unspecified formulation Ollie Britt DO Work Phone: [facility] Payers Date Payer Category Payer Self-pay 2022 [employer] [facility] [employer] [id number] 2022 Unknown 2022 Unknown [id number] Unknown [id number] Unknown [id number] Unknown [id number] Social History Date Type Detail Facility Start: 04-25-2023 End: 05-06-2024 Tobacco smoking status NHIS Ex-smoker [facility] Start: 01-22-1978 End: 09-22-2018 History of tobacco use Current smoker [facility] Start: 01-22-1978 End: 09-22-2018 History of tobacco use Cigarette Smoker [facility] Start: 04-19-2022 End: 11-21-2024 Alcohol intake Current drinker of alcohol (finding) [facility] Start: 04-19-2022 End: 05-06-2024 Alcohol intake [facility] Start: 04-19-2022 End: 05-06-2024 Tobacco use panel [facility] Start: 1960 Sex Assigned At Not on file [facility] Start: 04-25-2023 End: 05-06-2024 Tobacco use and exposure Smokeless tobacco non-user [facility] Start: 1960 Sex Assigned At Male S [facility] Start: 04-18-2023 Gender identity Identifies as male gender (finding) [facility] Start: 04-18-2023 Sexual orientation Heterosexual (fin ross) [facility] How often do you nee d to have someone help you when you read instructions, pamphlets, or other written material from your doctor or pharmacy [SILS] Never [facility] Has the [employer], [employer], [employer], or water [employer] threatened to shut off services in your home in past 12Mo No [facility] Are you now , , , , never or living with a partner? [facility] Do you feel stress - tense, restless, nervous, or anxious, or unable to sleep at night because your mind is troubled all the time - these days [OSQ] Not at all [facility] (I/We) worried wheth er (my/our) food would run out before (I/we) got money to buy more. Never true [facility] Start: 02-18-2022 Sex Male (finding) [facility] How often do you nee d to have someone help you when you read instructions, pamphlets, or other written material from your doctor or pharmacy [SILS] Never [facility] Clinical Notes 04-25-2023 to 03-10-2025 Telephone Encounter - Ryan Morales - 03/10/2025 11:06 AM EDTTelephone Encounter - Ryan Morales - 03/10/2025 11:06 AM EDTTelephone Encounter - Suzanne Carballo - 12/01/2024 11:12 AM EDT Note Date & Type Note Facility 03-10-2025 Telephone encounter Note Name of caller: Lilian Contact phone number: [phone] Relationship to Patient: spouse/SO Provider: Dr. Britt Practice: [facility] Chief Complaint/Reason for Call: Lilian requesting patients metoprolol succinate XL (Toprol-XL) 100 MG 24 hr tablet refill to be sent to [facility] [address] Please advise. Best time of day caller can be reached: any Patient advised that office/PCP has 24-48 business hours to return their call: Yes [facility] 03-10-2025 Miscellaneous Notes Name of caller: Lilian Contact phone number: [phone] Relationship to Patient: spouse/SO Provider: Dr. Britt Practice: [facility] Chief Complaint/Reason for Call: Lilian requesting patients metoprolol succinate XL (Toprol-XL) 100 MG 24 hr tablet refill to be sent to [facility] [address] Please advise. Best time of day caller can be reached: any Patient advised that office/PCP has 24-48 business hours to return their call: Yes documented in this encounter [facility] 12-01-2024 Telephone encounter Note Pt is out of medication, mail order is delayed Medication name: metoprolol succinate XL (Toprol-XL) 100 MG 24 hr tablet Medication dosage: 100 mg (Miligrams Monthly quantity needed: 10 How many day supply requestin pills Medication route: oral (PO) Medication administration time(s): daily If taking medication PRN, reason for taking medication: N/A If this is a controlled substance do you receive this or any other controlled medication from any other doctor or facility: N/A Ordering provider: Dr. Britt Date of last office visit: 08.19.24 Date of next office visit: 02.17.25 Date of last refill: (see medication tab): 08.19.24 Updated/Validated preferred pharmacy: Yes Patient instructed to contact the pharmacy prior to picking up the medication: No [facility] 12-01-2024 Miscellaneous Notes Pt is out of medication, mail order is delayed Medication name: metoprolol succinate XL (Toprol-XL) 100 MG 24 hr tablet Medication dosage: 100 mg (Miligrams Monthly quantity needed: 10 How many day supply requestin pills Medication route: oral (PO) Medication administration time(s): daily If taking medication PRN, reason for taking medication: N/A If this is a controlled substance do you receive this or any other controlled medication from any other doctor or facility: N/A Ordering provider: Dr. Britt Date of last office visit: 08.19.24 Date of next office visit: 02.17.25 Date of last refill: (see medication tab): 08.19.24 Updated/Validated preferred pharmacy: Yes Patient instructed to contact the pharmacy prior to picking up the medication: No documented in this encounter [facility] 11-17-2024 Note [facility] Medical Records Department [address] [place] [address] History Physical Exam 11/17/24 0750 MR#: [id number] Acct: [id number] Name: PACO GILES Rep #: [id number] : 1960 64 From: Conor Friend DO PCP: Dr. Ollie Britt, DO Status:[facility] Location: AC12-1 HPI - General General Date of Admission: 11/17/24 Date of Service: 11/17/24 Chief Complaint: Screening colon HPI Narrative PACO GILES, is a 64 M who presents today for a screening colonoscopy. He had a colonoscopy in 2011 in which he had 3 polyps removed during that time. He is not have any abdominal pain. He is not have any chest pain or shortness of breath. He has a past medical history of hypertension and hypercholesterolemia. [facility] Medical History Cancer Marijuana use Arthritis High cholesterol Migraine headache Back pain History of diverticulitis Former smoker Hypercholesteremia HTN (hypertension) Hx of colonic polyps Home Medications ???Medication ???Instructions ???Recorded ???Last Taken ???Type aspirin 81 mg tablet,delayed 81 mg PO QDAY 09/10/24 11/13/24 Hi story release (Adult Low Dose Aspirin) metoprolol succinate 100 mg 100 mg PO QDAY 09/10/24 11/16/24 H istory tablet,extended release 24 hr omega 9-dww-toq-fish oil 1,200 mg 1 cap PO QDAY 09/10/24 11/12/24 H istory (144 mg-216 mg) capsule (Fish Oil) rosuvastatin 40 mg tablet 40 mg PO QDAY 09/10/24 11/16/24 Hi story Allergy/AdvReac Type Severity Reaction Status Date / Time No Known Allergies Allergy Verified 11/17/24 06:53 Family History Mother Alzheimer disease Father COPD (chronic obstructive pulmonary disease) CAD (coronary artery disease) Surgical History History of orchiectomy History of hernia repair Hx of colonoscopy Social History household members: spouse current occupational status: employed Smoking Status: Former smoker alcohol intake: current alcohol intake frequency: holidays/special occasions only substance use type: does not use ROS Constitutional Constitutional: Denies fatigue, fever(s), poor appetite, weight gain or weight loss Gastrointestinal Gastrointestinal: Denies belching, bloating, change in bowel habits, change in stool character, chewing difficulty, coffee ground emesis, constipation, cramping, diarrhea, dyspepsia, dysphagia, early satiety, excessive flatus, fecal incontinence, heartburn, hematemesis, hematochezia, hemorrhoids, loose stools, melena, nausea, odynophagia, rectal bleeding, tenesmus, vomiting or weight changes Vital Signs Vital Signs Vital Signs: 11/17/24 06:54 11/17/24 06:54 11/17/24 07:21 Temperature 97.2 F L 97.2 F L Temperature Source Temporal Pulse Rate 76 76 Respiratory Rate 16 16 Respiratory Pattern Normal Blood Pressure 124/84 H 124/84 H Blood Pressure Mean 97 Blood Pressure Source Monitor Blood Pressure Position Semi-Fowlers Blood Pressure Location Right Arm Pulse Ox 93 93 Oxygen Delivery Method Room Air Weight Weight: 250 lb 7.122 oz Body Mass Index (BMI) 34.9 Physical Exam Const alert, oriented x3, no apparent distress and healthy appearing General Appearance: cooperative GI normal to inspection, nondistended, normoactive bowel sounds, soft to palpation, non-tender and non- distended Percussion: normal to percussion Rectal Exam: deferred Assessment Plan Assessment/Plan (1) Encounter for screening for malignant neoplasm of colon: PLAN: He was explained alternatives, risks, benefits include not withstanding bleeding, infection, sepsis, perforation, need for emergent surgery and . He will have an ASA of 3. 11/17/24 0752 Cosigner Signature (if applicable): CC: Dr. Ollie Britt, ; Conor Scott, Signed [facility] 10-11-2024 Note Addended by: REGGIE VELÁZQUEZ on: 10/11/2024 09:11 AM Modules accepted: Orders [facility] 10-11-2024 Miscellaneous Notes Addended by: REGGIE VELÁZQUEZ on: 10/11/2024 09:11 AM Modules accepted: Orders Referral to Dr Gardiner and LDCT pended for doctor's signature documented in this encounter [facility] 09-09-2024 Note Order switched to Dr Naseem Scott. Records and referral faxed [facility] 09-09-2024 Telephone encounter Note Order switched to Dr. Scott. Records and referral faxed [facility] 09-09-2024 Miscellaneous Notes Order switched to Dr. Scott. Records and referral faxed Name of caller: Lilian Giles Contact phone number: [phone] Relationship to Patient: spouse/SO Provider: Dr Britt Practice: [facility] Chief Complaint/Reason for Call: Caller stated that patient needs referral for colonoscopy sent to [facility], or [facility]. Caller stated that previous referral was sent to [facility] [place] and they are not able to go to [facility] [place] for this. Thank you. Best time of day caller can be reached: Any Patient advised that office/PCP has 24-48 business hours to return their call: No documented in this encounter [facility] 09-09-2024 Telephone encounter Note Name of caller: Lilian Giles Contact phone number: [phone] Relationship to Patient: spouse/SO Provider: Dr Britt Practice: [facility] Chief Complaint/Reason for Call: Caller stated that patient needs referral for colonoscopy sent to [facility], or [facility]. Caller stated that previous referral was sent to [facility] and they are not able to go to [place] for this. Thank you. Best time of day caller can be reached: Any Patient advised that office/PCP has 24-48 business hours to return their call: No [facility] 08-20-2024 Telephone encounter Note Placed call to patient. Two patient identifers confirmed. Was able to speak to patient. All concerns in message have been addressed. No questions at this time. Call ended [facility] 08-20-2024 Miscellaneous Notes Placed call to patient. Two patient identifers confirmed. Was able to speak to patient. All concerns in message have been addressed. No questions at this time. Call ended S: Patient 's spouse spoke with [facility] nurse regarding patient's symptoms of cough, headache and sinus symptoms B: Onset of symptoms/concern 4 days A: Patient was seen in the office yesterday for essential HTN, hypercholesterolemia, Spouse states patient didn't sleep all night due to the symptoms he has had for 4 days, unsure why patient didn't express these concerns to the doctor yesterday. Patient has a productive cough with green phlegm., sinus symptoms (headache), and headache pain. Afebrile, denies sore throat or ear pain. ZAHRA-08/19/2024 [facility] verified. R: Spouse is requesting something be ordered for the patient's symptoms. Spouse instructed to call back with new or worsening symptoms. Reason for Disposition Lots of coughing Protocols used: Sinus Pain or [id number] documented in this encounter [facility] 08-20-2024 Telephone encounter Note S: Patient 's spouse spoke with [facility] nurse regarding patient's symptoms of cough, headache and sinus symptoms B: Onset of symptoms/concern 4 days A: Patient was seen in the office yesterday for essential HTN, hypercholesterolemia, Spouse states patient didn't sleep all night due to the symptoms he has had for 4 days, unsure why patient didn't express these concerns to the doctor yesterday. Patient has a productive cough with green phlegm., sinus symptoms (headache), and headache pain. Afebrile, denies sore throat or ear pain. ZAHRA-08/19/2024 Allergies & pharmacy ([facility]) verified. R: Spouse is requesting something be ordered for the patient's symptoms. Spouse instructed to call back with new or worsening symptoms. Reason for Disposition Lots of coughing Protocols used: Sinus Pain or [id number] [facility] 08-19-[address] Lola villela and LDCT pended for doctor's signature [facility] 08-19-2024 Telephone encounter Note Referral to Dr Gardiner and RACHELCT pended for doctor's signature [facility] 08-19-2024 Miscellaneous Notes Referral to Dr Gardiner and RACHELCT pended for doctor's signature documented in this encounter [facility] 08-19-2024 History of Present illness Narrative Images from the original note were not included. [facility] - [address] [facility] [address] Visit type: Established Patient Reason for Visit: 3 Month Follow Up (Hypertension and Hyperlipidemia - changed medications. Gained 10 pounds from last visit ) and URI (Congestion - Cough - started 4 days ago ) Assessment / Plan: fortino was seen today for 3 month follow up and uri. Diagnoses and all orders for this visit: Essential hypertension (Primary) Comments: Stable on metoprolol Hypercholesterolemia Comments: Uncontrolled, better low-fat meals delete excessive milk intake, exercise weight loss and continue Crestor Orders: - Lipid panel; Future - AST; Future - ALT; Future - TSH; Future - Lipid panel - AST - ALT - TSH Screening for lung cancer Comments: LDCT chest Colon cancer screening Comments: GI referral Viral URI Other orders - metoprolol succinate XL (Toprol-XL) 100 MG 24 hr tablet; Take 1 tablet (100 mg) by mouth daily. Do not crush or chew. - rosuvastatin (Crestor) 40 MG tablet; TAKE 1 TABLET EVERY EVENING AFTER A MEAL (DOSE INCREASE) Subjective: Patient ID: Paco Giles is a 64 y.o. male. HPI hypertension lipid management for ex-smoker for 6 years. Feels good on his metoprolol. Blood pressure readings good at home. He does admit to drinking up to 4 gallons of milk a day and his triglycerides and cholesterol are quite high last April. Has gained some weight since he quit smoking. Discouraged and that. Review of Systems Denies headache or chest pain or dyspnea. Does have a mild rhinorrhea that is slightly yellow. No fever or face pain. No chest pain or pleurisy. Denies claudication or edema. No wheezing or dyspnea. No abdominal pain or change in bowels. Is due for colonoscopy. No change in urine flow. Prostate cancer screening up-to-date. No Known Allergies Current Outpatient Medications on File Prior to Visit Medication Sig Dispense Refill aspirin 81 MG EC tablet Take 81 mg by mouth daily. omega-3 (Fish Oil) 1200 MG capsule Take 1 tablet by mouth daily. [DISCONTINUED] metoprolol succinate XL (Toprol-XL) 100 MG 24 hr tablet Take 1 tablet (100 mg) by mouth daily. Do not crush or chew. 90 tablet 1 [DISCONTINUED] rosuvastatin (Crestor) 40 MG tablet TAKE 1 TABLET EVERY EVENING AFTER A MEAL (DOSE INCREASE) 90 tablet 3 No current facility-administered medications on file prior to visit. Patient Active Problem List Diagnosis Family history of Alzheimer's disease Femoral bruit History of colon polyps Diverticular disease of large intestine Essential hypertension Renal cyst, left Family history of melanoma Family history of coronary artery disease History of basal cell carcinoma of skin DDD (degenerative disc disease), lumbosacral Hypercholesterolemia Social History Tobacco Use Smoking status: Former Current packs/day: 0.00 Average packs/day: 0.5 packs/day for 40.7 years (20.3 ttl pk-yrs) Types: Cigarettes Start date: 01/22/1978 Quit date: 09/22/2018 Years since quittin.9 Smokeless tobacco: Never Substance Use Topics Alcohol use: Yes Alcohol/week: 0.0 standard drinks of alcohol Past Surgical History: Procedure Laterality Date COLONOSCOPY 2014 Turowski- due 2025 COLONOSCOPY 2011 Turowski HERNIA REPAIR Left 2010 HERNIA REPAIR Left 1996 ORCHIECTOMY Right 1977 torsion SKIN CANCER EXCISION 2011 2011- Dr. Jackson- BCC of nose- 2016 also Family History Problem Relation Name Age of Onset Alzheimer's disease Mother 68 late 72 COPD Father on O2, 08/12 age 84 Coronary artery disease Father 70 CABG , Hyperlipidemia Sister Malini Melanoma Sister Malini Diabetes Maternal Grandmother Dementia Maternal Grandmother in 60s Diabetes Maternal Grandfather in 60s Cerebral aneurysm Paternal Grandmother young No Known Problems Paternal Grandfather age 89 Objective: BP 128/86 (BP Location: Right arm, Patient Position: Sitting, BP Cuff Size: Large adult) Pulse 90 Temp 36.7 C (98.1 F) (Temporal) Resp 16 Ht 5' 11 (1.803 m) Wt 250 lb 12.8 oz (114 kg) BMI 34.98 kg/m Physical Exam pleasant cooperative. Recheck blood pressure stable. Clear PND. Normal eardrums and oropharynx. No neck masses JVD or thyroid lesions. Heart is regular without gallops or murmurs. Lungs are diminished but clear of rales wheezes or egophony. Abdomen obese nontender without pain hepatosplenomegaly masses or bruits. Femoral pulses good. No edema and pedal pulses are good documented in this encounter [facility] 07-08-2024 Note Addended by: REGGIE VELÁZQUEZ on: 07/08/2024 05:37 PM Modules accepted: Orders [facility] 07-08-2024 Note Addended by: REGGIE VELÁZQUEZ on: 07/08/2024 05:37 PM Modules accepted: Orders [facility] 07-08-2024 Miscellaneous Notes Addended by: REGGIE VELÁZQUEZ on: 07/08/2024 05:37 PM Modules accepted: Orders Orders for LDCT pended for doctor's signature ----- Message from Ollie Britt DO sent at 05/06/2024 12:16 PM EDT ----- This is the correct Fortino Giles who needs an LDCT of his chest. I believe he sent me a request for his son this morning documented in this encounter [facility] 06-03-2024 History of Present illness Narrative Images from the original note were not included. [address] [facility] [id number] @patname@ Patient arrived for nurse visit today. Two patient identifiers used to confirm correct patient yes Supervising provider for clinic visit Dr. Britt is taking Metoprolol 100mg for hypertension with excellent compliance and no side effects regular Shortness of breath no Medication compliance yes Medication Reconciliation yes BP Medication taken prior to visit no at what time 8:00pm B/P Reading taken manual Home Monitoring yes Patient advised if follow up is needed, outreach will occur in 48 hours BP:112/68 HR:65 Home Bps have been running in the 110s/60s BP stable, no rx changes documented in this encounter [facility] 05-06-2024 Telephone encounter Note Orders for LDCT pended for doctor's signature [facility] 05-06-2024 Miscellaneous Notes Orders for LDCT pended for doctor's signature ----- Message from Ollie Britt DO sent at 05/06/2024 12:16 PM EDT ----- This is the correct Fortino Giles who needs an LDCT of his chest. I believe he sent me a request for his son this morning documented in this encounter [facility] 05-06-2024 Telephone encounter Note ----- Message from Ollie Britt DO sent at 05/06/2024 12:16 PM EDT ----- This is the correct Fortino Giles who needs an LDCT of his chest. I believe he sent me a request for his son this morning [facility] 05-06-2024 History of Present illness Narrative Images from the original note were not included. [facility] - [address] [facility] [id number] Visit type: Established Patient Reason for Visit: Annual Exam and Flu Vaccine (Patient has agreed to receive influenza vaccine in the office today. ) Assessment / Plan: fortino was seen today for annual exam and flu vaccine. Diagnoses and all orders for this visit: Annual physical exam (Primary) Degeneration of intervertebral disc of lumbar region with discogenic back pain Hypercholesteremia Comments: Stable, continue Crestor and Zetia Orders: - CBC auto differential; Future - Comprehensive metabolic panel; Future - Lipid panel; Future - CBC auto differential - Comprehensive metabolic panel - Lipid panel History of basal cell carcinoma of skin Prostate cancer screening - PSA Total (Screening); Future - PSA Total (Screening) Primary hypertension Comments: New onset, begin metoprolol, BP check 4 weeks, baby aspirin daily Screening for lung cancer Comments: Praise given on smoking cessation. LDCT chest Other orders - Flu vaccine (FLUZONE/FLULAVAL), trivalent, split virus (VFC product) - ezetimibe (Zetia) 10 MG tablet; Take 1 tablet (10 mg) by mouth daily. - rosuvastatin (Crestor) 10 MG tablet; TAKE 1 TABLET EVERY EVENING AFTER A MEAL (DOSE INCREASE) - metoprolol succinate XL (Toprol-XL) 50 MG 24 hr tablet; Take 1 tablet (50 mg) by mouth daily. Do not crush or chew. Subjective: Patient ID: Paco Giles is a 63 y.o. male. HPI ex-smoker for many years presents for annual physical. On statin therapy. Overall feeling well except but has become worried about risk for hypertension and cerebral aneurysms. Apparently had 2 close friends have cerebral events and 1 is not doing well. Overall feeling well except for some low back pain and weight gain. He is contemplating getting a less labor-intensive job to help his back issues. Review of Systems no recent earache sore throat or cough. No chest pain or palpitations. No dyspnea on exertion PND orthopnea claudication or edema. No change in ENT. Denies change in vision or headaches. No abdominal pain. Bowels are regular. No melena or blood. No constipation or diarrhea. No dysuria or hematuria. Needs PORSCHE and PSA. Colonoscopy up-to-date. Low back pain. No sciatica lately. Does take Tylenol with some decent relief. 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 Blood pressure has been intermittently elevated in the past No Known Allergies Current Outpatient Medications on File Prior to Visit Medication Sig Dispense Refill aspirin 81 MG EC tablet Take 81 mg by mouth daily. omega-3 (Fish Oil) 1200 MG capsule Take 1 tablet by mouth daily. [DISCONTINUED] ezetimibe (Zetia) 10 MG tablet Take 1 tablet (10 mg) by mouth daily. 90 tablet 3 [DISCONTINUED] rosuvastatin (Crestor) 10 MG tablet TAKE 1 TABLET EVERY EVENING AFTER A MEAL (DOSE INCREASE) 90 tablet 3 No current facility-administered medications on file prior to visit. Patient Active Problem List Diagnosis Family history of Alzheimer's disease Femoral bruit History of colon polyps Diverticular disease of large intestine Labile essential hypertension Renal cyst, left Family history of melanoma Family history of coronary artery disease in father History of basal cell carcinoma of skin Lumbar degenerative disc disease Hypercholesteremia Social History Tobacco Use Smoking status: Former Current packs/day: 0.00 Average packs/day: 0.5 packs/day for 40.7 years (20.3 ttl pk-yrs) Types: Cigarettes Start date: 01/22/1978 Quit date: 09/22/2018 Years since quittin.6 Smokeless tobacco: Never Substance Use Topics Alcohol use: Yes Alcohol/week: 0.0 standard drinks of alcohol Past Surgical History: Procedure Laterality Date COLONOSCOPY 2014 Turowski- due 2024 COLONOSCOPY 2011 Turowski HERNIA REPAIR Left 2010 HERNIA REPAIR Left 1996 ORCHIECTOMY Right 1977 torsion SKIN CANCER EXCISION 2011 2011- Dr. Jackson- BCC of nose- 2016 also Family History Problem Relation Name Age of Onset Alzheimer's disease Mother 68 late 72 COPD Father on O2, passed 08/12 age 84 Heart disease Father 70 CABG , Hyperlipidemia Sister Malini Melanoma Sister Malini Hyperlipidemia Sister Nichole Cerebral aneurysm Maternal Grandmother 60 Diabetes Maternal Grandfather No Known Problems Paternal Grandmother in 80s No Known Problems Paternal Grandfather Objective: BP (!) 170/90 (BP Location: Left arm, Patient Position: Sitting, BP Cuff Size: Large adult) Pulse 104 Temp 37.3 C (99.2 F) (Temporal) Ht 5' 11 (1.803 m) Wt 240 lb (109 kg) SpO2 91% BMI 33.47 kg/m Physical Exam Constitutional: General: He is not in acute distress. Appearance: Normal appearance. He is obese. He is not ill-appearing. HENT: Right Ear: Tympanic membrane normal. Left Ear: Tympanic membrane normal. Nose: Nose normal. No rhinorrhea. Mouth/Throat: Pharynx: No oropharyngeal exudate or posterior oropharyngeal erythema. Eyes: General: No scleral icterus. Conjunctiva/sclera: Conjunctivae normal. Neck: Vascular: No carotid bruit. Comments: No thyroid masses or adenopathy Cardiovascular: Rate and Rhythm: Normal rate and regular rhythm. Pulses: Normal pulses. Heart sounds: Normal heart sounds. No murmur heard. No gallop. Pulmonary: Effort: No respiratory distress. Breath sounds: Normal breath sounds. No wheezing or rhonchi. Abdominal: General: Bowel sounds are normal. There is no distension. Palpations: Abdomen is soft. There is no mass. Tenderness: There is no abdominal tenderness. Hernia: No hernia is present. Comments: Obese without pain hepatosplenomegaly masses bruits or ascites. Femoral pulses are good Genitourinary: Penis: Normal. No discharge. Testes: Normal. Comments: Normal genitalia, no scrotal masses or pain. No hernias. PORSCHE revealed normal sphincter tone and no anal or rectal masses. Prostate exam revealed no nodules. Musculoskeletal: General: Normal range of motion. Cervical back: Neck supple. Right lower leg: No edema. Left lower leg: No edema. Lymphadenopathy: Cervical: No cervical adenopathy. Skin: General: Skin is warm. Findings: No erythema or rash. Neurological: General: No focal deficit present. Mental Status: He is alert and oriented to person, place, and time. Cranial Nerves: No cranial nerve deficit. Sensory: No sensory deficit. Motor: No weakness. Deep Tendon Reflexes: Reflexes normal. Psychiatric: Mood and Affect: Mood normal. Thought Content: Thought content normal. documented in this encounter [facility] 05-06-2024 Instructions Ollie Britt DO - 05/06/2024 7:00 AM EDT Blood pressure check with staff in 4 weeks documented in this encounter [facility] 05-02-2023 Telephone encounter Note Noted. [facility] 05-02-2023 Miscellaneous Notes Noted. Message released to patient as written. ----- Message ----- From: Ollie Britt DO Sent: 04/27/2023 9:04 PM To: [facility] Clinical Sewer And Inspector All labs satisfactory, normal CBC, chemistries lipid panel and prostate marker. No med changes. Recheck blood pressure as discussed. Patient's further questions if applicable: Lilian verbalized understanding. States she will have pt call to schedule a BP check. FYI. Were all questions from office addressed or relayed to the patient from encounter: Yes Placed call to patient. Unable to reach them by phone to discuss lab results. Left detailed message to return call to discuss results. Please release results ----- Message from Susan Fernandez MA sent at 04/28/2023 8:44 AM EDT ----- ----- Message ----- From: Ollie Britt DO Sent: 04/27/2023 9:04 PM EDT To: [facility] Clinical Sewer And Inspector All labs satisfactory, normal CBC, chemistries lipid panel and prostate marker. No med changes. Recheck blood pressure as discussed. documented in this encounter [facility] 05-02-2023 Telephone encounter Note Message released to patient as written. ----- Message ----- From: Ollie Britt DO Sent: 04/27/2023 9:04 PM To: [facility] Clinical Sewer And Inspector All labs satisfactory, normal CBC, chemistries lipid panel and prostate marker. No med changes. Recheck blood pressure as discussed. Patient's further questions if applicable: Lilian verbalized understanding. States she will have pt call to schedule a BP check. FYI. Were all questions from office addressed or relayed to the patient from encounter: Yes [facility] 04-28-2023 Telephone encounter Note Placed call to patient. Unable to reach them by phone to discuss lab results. Left detailed message to return call to discuss results. Please release results [facility] 04-28-2023 Telephone encounter Note ----- Message from Susan Fernandez MA sent at 04/28/2023 8:44 AM EDT ----- ----- Message ----- From: Ollie Britt DO Sent: 04/27/2023 9:04 PM EDT To: [facility] Clinical Sewer And Inspector All labs satisfactory, normal CBC, chemistries lipid panel and prostate marker. No med changes. Recheck blood pressure as discussed. [facility] 04-25-2023 Telephone encounter Note Referral pended for doctor's signature [facility] 04-25-2023 Miscellaneous Notes Referral pended for doctor's signature documented in this encounter [facility] 04-25-2023 History of Present illness Narrative Images from the original note were not included. [facility] [address] [place] [address] [address] [facility] [phone] Visit type: Established Patient Reason for Visit: Annual Exam Assessment / Plan: fortino was seen today for annual exam. Diagnoses and all orders for this visit: Annual physical exam (Primary) - CBC auto differential; Future - Comprehensive metabolic panel; Future - Lipid panel; Future - PSA Total (Screening); Future - CBC auto differential - Comprehensive metabolic panel - Lipid panel - PSA Total (Screening) Labile essential hypertension Comments: Noted, recheck BP 4 weeks Orders: - CBC auto differential; Future - Comprehensive metabolic panel; Future - CBC auto differential - Comprehensive metabolic panel Hypercholesteremia Comments: Stable, continue Zetia and Crestor Orders: - Lipid panel; Future - Lipid panel - TSH; Future - TSH Family history of Alzheimer's disease Family history of melanoma History of basal cell carcinoma of skin Lesion of nose Comments: Probable basal cell, Derm referral SPF 50 at least Prostate cancer screening - PSA Total (Screening); Future - PSA Total (Screening) Other orders - ezetimibe (Zetia) 10 MG tablet; Take 1 tablet (10 mg) by mouth daily. - rosuvastatin (Crestor) 10 MG tablet; TAKE 1 TABLET EVERY EVENING AFTER A MEAL (DOSE INCREASE) - Flu vaccine quadrivalent (IIV4), for patients ages 6 mo+, (Flulaval) preservative free Subjective: Patient ID: Paco Giles is a 62 y.o. male. HPI annual physical for patient with hyperlipidemia treatment. Overall feeling well. A little discouraged and stressed out with a recent new [employer] F1 50 purchase that has major electrical problems. 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 Nonetheless he comes in today for annual exam. No new concerns. 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 Enjoys his job. Getting his body beat up a little bit but no NSAID use. He does mention that his father this past July of complications of COPD. Had heart disease and long-term smoker. 2 younger sisters are stable on lipid-lowering drugs Review of Systems denies recent earache sore throat or cough. Would like to get vaccinations. Ex-smoker for more than 4 years. No cough wheezing dyspnea chest pain jaw pain or arm pain. No heartburn or dysphagia. No abdominal pain. Bowels are regular. Colonoscopy in a few years. Some nocturia and postvoid dribbling but no hematuria dysuria. Some low back pain but no sciatica. History of basal cell carcinoma of the right nasolabial area but has another lesion on his left side of his nose. No Known Allergies Current Outpatient Medications on File Prior to Visit Medication Sig Dispense Refill aspirin 81 MG EC tablet Take 81 mg by mouth daily. omega-3 (Fish Oil) 1200 MG capsule Take 1 tablet by mouth daily. [DISCONTINUED] ezetimibe (Zetia) 10 MG tablet TAKE 1 TABLET DAILY 90 tablet 3 [DISCONTINUED] rosuvastatin (Crestor) 10 MG tablet TAKE 1 TABLET EVERY EVENING AFTER A MEAL (DOSE INCREASE) 90 tablet 3 No current facility-administered medications on file prior to visit. Patient Active Problem List Diagnosis Family history of Alzheimer's disease Femoral bruit History of colon polyps Diverticular disease of large intestine Labile essential hypertension Renal cyst, left Family history of melanoma Family history of coronary artery disease in father History of basal cell carcinoma of skin Lumbar degenerative disc disease Hypercholesteremia Social History Tobacco Use Smoking status: Former Packs/day: .5 Types: Cigarettes Start date: 01/22/1978 Quit date: 09/22/2018 Years since quittin.5 Smokeless tobacco: Never Substance Use Topics Alcohol use: Yes Alcohol/week: 0.0 standard drinks of alcohol Past Surgical History: Procedure Laterality Date COLONOSCOPY 2014 Kyle COLONOSCOPY 2011 per Kyle -bernardo 2014 HERNIA REPAIR Left 2010 HERNIA REPAIR Left 1995 SKIN CANCER EXCISION 2011 2011- Dr. Jackson- BCC of nose- 2016 also TESTICLE SURGERY Right 1977 torsion Family History Problem Relation Name Age of Onset Alzheimer's disease Mother 68 late 72 COPD Father on O2, passed 08/12 age 84 Heart disease Father 70 CABG , Hyperlipidemia Sister Malini Melanoma Sister Malini Hyperlipidemia Sister Diabetes Maternal Grandmother Diabetes Maternal Grandfather No Known Problems Paternal Grandmother in 80s No Known Problems Paternal Grandfather Objective: BP (!) 148/88 Pulse 68 Temp 37.2 C (98.9 F) (Temporal) Ht 5' 11 (1.803 m) Wt 224 lb (102 kg) SpO2 93% BMI 31.24 kg/m Physical Exam The physical exam is generally normal. Patient appears well, alert and oriented x 3, pleasant, cooperative. Vitals are as noted. No carotid bruits. Neck supple, no abnormal adenopathy, thyroid lesions or masses. Ears, nose and throat are normal without acute findings. Lungs are clear to auscultation. Heart is regular, without murmurs, gallops or ectopy. Abdomen is soft, non tender, without masses, hepatosplenomegaly, or bruits. Normal BS evident. Extremities are normal without edema. Peripheral pulses are fair. No worrisome skin lesions. Screening neurological exam is normal without focal deficits. No hernias. Only 1 testicle remaining is normal. Glans penis normal. Normal rectal exam without masses and prostate is smooth without nodules documented in this encounter [facility] 04-25-2023 Instructions Ollie Britt DO - 04/25/2023 7:00 AM EDT Blood pressure check here with staff or call values in 4 weeks -goal is to be less than 140 systolic and less than 90 diastolic. Lose some weight. Low-salt meals perhaps decrease amount of milk intake. documented in this encounter [facility] note Diagnosis Lesion of nose- Primary History of basal cell carcinoma of skin [facility] Diagnosis Annual physical exam- Primary Routine general medical examination at a health care facility Labile essential hypertension Hypercholesteremia Pure hypercholesterolemia Family history of Alzheimer's disease Family history of other condition Family history of melanoma Family history of other specified malignant neoplasm History of basal cell carcinoma of skin Lesion of nose Prostate cancer screening Special screening for malignant neoplasm of prostate [facility] Diagnosis Annual physical exam- Primary Routine general medical examination at a health care facility Degeneration of intervertebral disc of lumbar region with discogenic back pain Hypercholesteremia Pure hypercholesterolemia History of basal cell carcinoma of skin Prostate cancer screening Special screening for malignant neoplasm of prostate Primary hypertension Unspecified essential hypertension Screening for lung cancer [facility] Diagnosis Former smoker Personal history of tobacco use, presenting hazards to health [facility] Diagnosis Primary hypertension Unspecified essential hypertension [facility] Diagnosis Former smoker Personal history of tobacco use, presenting hazards to health [facility] Diagnosis Essential hypertension- Primary Unspecified essential hypertension Hypercholesterolemia Pure hypercholesterolemia Screening for lung cancer Colon cancer screening Special screening for malignant neoplasms, colon Viral URI Acute upper respiratory infections of unspecified site [facility] Diagnosis Former smoker- Primary Personal history of tobacco use, presenting hazards to health Screening for lung cancer Colon cancer screening Special screening for malignant neoplasms, colon [facility] Diagnosis Former smoker- Primary Personal history of tobacco use, presenting hazards to health Screening for lung cancer Colon cancer screening Special screening for malignant neoplasms, colon [facility] Consultation (Routine) - Pending Review Specialty Diagnoses / Procedures Referred By Krysten t Referred To Contact Dermatology Diagnoses Lesion of nose History of basal cell carcinoma of skin Procedures [place] OFFICE/OUTPATIENT NEW HIGH MDM 60-74 MINUTES Ollie Britt DO [address] [place] [address] Sherine Nobles MD [address] [place] [address] Referral ID Status Reason Start Date Expiration Date Visits Requested Visits Authorized [id number] Pending Review Specialty Services Required 04/25/2023 04/24/2024 1 1 na[facility] Summary Purpose Family History No Family History Records FoundNo Family History Records FoundNo Family History Records Found Advance Directives No Advanced Directives Records FoundNo Advanced Directives Records FoundNo Advanced Directives Records Found Reason for Referral Specialty Diagnoses / Procedures Referred By Krysten cuevas Referred To Contact Radiology Diagnoses Former smoker Procedures CT lung screening low dose Ollie Britt DO [address] [place] [address] Referral ID Status Reason Start Date Expiration Date V isits Requested Visits Authorized [id number] Pending Review 05/09/2024 05/09/2025 1 1 Additional Source Comments (unrecognized sect ion and content) No Status Records FoundNo Status Records FoundNo Status Records Found INFORMATION SOURCE (unrecogn ized section and content) DATE CREATED AUTHOR 01/15/2018 [facility] DATE CREATED AUTHOR AUTHOR'S ORGANIZ ATION 11/28/2024 [facility] DATE CREATED AUTHOR AUTHOR'S ORGANIZ ATION 03/12/2025 [facility] Reason for Visit (unrecogniz ed section and content) Reason Comments Med Refill Reason Onset Date Comments Referral 04/25/2023 [facility] Reason Comments Annual Exam Reason Onset Date Comments Results 04/28/2023 Release of Information 05/02/2023 Reason Comments Annual Exam Flu Vaccine Patient has agreed t o receive influenza vaccine in the office today. Reason Onset Date Comments Orders 05/06/2024 [facility] Reason Comments Blood Pressure Check Reason Onset Date Comments Orders 05/06/2024 LDCT Reason Comments 3 Month Follow Up Hypertension and Hyp erlipidemia - changed medications. Gained 10 pounds from last visit URI Congestion - Cough - started 4 days ago Reason Onset Date Comments Referral 08/19/2024 Dr Gardiner / RIYA T Reason Onset Date Comments Sinusitis 08/20/2024 Reason Onset Date Comments Colonoscopy 09/09/2024 Reason Onset Date Comments Referral 08/19/2024 Dr Gardiner / LDC T Reason Onset Date Comments Med Refill 12/01/2024 Reason Onset Date Comments Medication Question 03/10/2025 Care Teams (unrecognized sec tion and content) Lab Nurse Relationship Specialty Start Date End Date Lorenza Ollie Machado, DO [address] [place], [place] [phone] PCP - General 04/03/15 Lab Nurse Relationship Specialty Start Date End Date Lorenza Ollie Machado, DO [address] [place], [place] [phone] PCP - General 04/03/15 Lab Nurse Relationship Specialty Start Date End Date Lorenza Ollie Machado, DO [address] [place], [place] [phone] PCP - General 04/03/15 Lab Nurse Relationship Specialty Start Date End Date Lorenza Ollie Machado, DO [address] [place] [phone] PCP - General 04/03/15 Lab Nurse Relationship Specialty Start Date End Date Lorenza Ollie Machado, DO [address] [place] [phone] PCP - General 04/03/15 Lab Nurse Relationship Specialty Start Date End Date Lorenza Ollie Machado, DO [address] [place] [address] PCP - General 04/03/15 Lab Nurse Relationship Specialty Start Date End Date Lorenza Ollie Machado, DO [address] [place] [phone] PCP - General 04/03/15 Lab Nurse Relationship Specialty Start Date End Date Ollie Britt DO [address] [place] [phone] PCP - General 04/03/15 Lab Nurse Relationship Specialty Start Date End Date Ollie Britt DO [address] [place] [phone] PCP - General 04/03/15 Lab Nurse Relationship Specialty Start Date End Date Ollie Britt DO [address] [place] [phone] PCP - General 04/03/15 Lab Nurse Relationship Specialty Start Date End Date Ollie Britt DO [address] [place] [phone] PCP - General 04/03/15 Lab Nurse Relationship Specialty Start Date End Date Ollie Britt DO [address] [place] [phone] PCP - General 04/03/15 Lab Nurse Relationship Specialty Start Date End Date Ollie Britt DO [address] [place] [phone] PCP - General 04/03/15 FOR RECORDS PERTAINING TO PATIENTS WHO ARE OR HAVE BEEN ENROLLED IN A CHEMICAL DEPENDENCY/SUBSTANCEABUSE PROGRAM, SOME INFORMATION MAY BE OMITTED. This clinical summary was aggregated from multiple sources. Caution should be exercised in using it in the provision of clinical care. This summary normalizes information from multiple sources, and as a consequence, information in this document may materially change the coding, format and clinical context of patient data. In addition, data may be omitted in some cases. CLINICAL DECISIONS SHOULD BE BASED ON THE PRIMARY CLINICAL RECORDS. [facility] [employer] [facility]. provides no warranty or guarantee of the accuracy or completeness of information in this document.
== END | disposition home or self-care (01) ==
PROVIDERS: PCP Family Medicine; Referring Provider Nurse Practitioner Family; Visit Provider Nurse Practitioner Family
DX: F17.210 Nicotine dependence, cigarettes, uncomplicated (principal)
CPT/HCPCS: 71271